=== PATIENT | female | born 1950 | race Asian ===

== ENCOUNTER 2017-01-30 20:42 | Inpatient (IN) | payer MEDICARE, OTHER ==
[~2017-01-30] VITALS: Ht 154.9 cm; Wt 57.2 kg
[~2017-01-30 20:42] MED LIST: CALC500T62 PO; CARV3 PO; INSNOV SQ; ISON300 PO; LEVO75TA10; LISI-662 PO; PHOSLOC PO; PRAV40 PO; SEVEC800 PO; VIT1TABL82 PO
[2017-01-30] MEDS ORDERED: DEXTROSE 50%-WATER 25 GM/50 ML SYRINGE IVP ONE ×3 (21:42→22:00)
[2017-01-30 21:57] LABS: BASOPHILS # (AUTO) 0.05 K/uL (0.00-0.20); BASOPHILS % (AUTO) 0.5 % (0.0-2.0); EOSINOPHILS # (AUTO) 0.16 K/uL (0.00-0.70); EOSINOPHILS % (AUTO) 1.87 % (1.0-6.0); HEMATOCRIT 38.5 % (36-46); HEMOGLOBIN 12.6 g/dL (12.0-16.0); LYMPHOCYTES # (AUTO) 1.4 K/uL (1.0-4.8); LYMPHOCYTES % (AUTO) 16.8 % (22.0-44.0); MEAN CORPUSCULAR HEMOGLOBIN 32.5 pg (26.0-34.0); MEAN CORPUSCULAR HGB CONC 32.8 G/dL (31.0-37.0); MEAN CORPUSCULAR VOLUME 99 fL (80-100); MONOCYTES # (AUTO) 0.7 K/uL (0.1-1.0); MONOCYTES % (AUTO) 8.6 % (2.0-9.0); NEUTROPHILS # (AUTO) 6.2 K/uL (1.8-7.7); NEUTROPHILS % (AUTO) 72.2 % (40.0-70.0); PLATELET COUNT (AUTO) 176 K/uL (150-450); RED BLOOD CELL COUNT(AUTO) 3.89 MIL/uL (4.00-5.20); RED CELL DISTRIBUTION WIDTH 15.4 % (11.5-14.5); WHITE BLOOD COUNT (AUTO) 8.6 K/uL (4.5-11.0)
[2017-01-30 22:12] LABS: CREATININE 10.7 mg/dL (0.60-1.30); POTASSIUM 4.4 mmol/L (3.5-5.1)
[2017-01-30 22:15] LABS: ALBUMIN 3.4 g/dL (3.4-5.0); BILIRUBIN,TOTAL 0.3 mg/dL (0.1-1.0); TOTAL PROTEIN, SERUM 8.1 g/dL (6.4-8.2)
[2017-01-30 22:27] LABS: GLUCOSE,POINT OF CARE 398 MG/DL (70-110)
[2017-01-30] MEDS ORDERED: DIGOXIN 250 MCG/ML 2 ML AMP IVP ONE (22:30)
[2017-01-30] MEDS ORDERED: OxyCODONE HCL/ACETAMINOPHEN 5-325 MG TABLET PO PRN (22:30)
[2017-01-30] MEDS ORDERED: ACETAMINOPHEN 325 MG TABLET PO PRN (22:30)
[2017-01-30] MEDS ORDERED: DILTIAZEM HCL 5 MG/ML 5 ML VIAL IVP ONE (22:30)
[2017-01-30 22:49] LABS: PROTHROMBIN TIME 10.6 SEC (9.4-11.6)
[2017-01-30 22:57] LABS: GLUCOSE,POINT OF CARE 369 MG/DL (70-110)
[2017-01-30 23:10] LABS: LACTIC ACID 2.3 mmol/L (0.4-2.0)
[2017-01-30 23:12] LABS: GLUCOSE,POINT OF CARE 313 MG/DL (70-110)
[2017-01-30 23:18] LABS: PROCALCITONIN (PCT) 0.24 ng/mL (<0.50)
[2017-01-30 23:20] LABS: BASOPHILS % (AUTO) 0.2 % (0.0-2.0); HEMATOCRIT 40.1 % (36-46); LYMPHOCYTES # (AUTO) 0.8 K/uL (1.0-4.8); LYMPHOCYTES % (AUTO) 10.8 % (22.0-44.0); MEAN CORPUSCULAR HEMOGLOBIN 31.8 pg (26.0-34.0); MEAN CORPUSCULAR HGB CONC 32.3 G/dL (31.0-37.0); MEAN CORPUSCULAR VOLUME 98 fL (80-100); MONOCYTES # (AUTO) 0.3 K/uL (0.1-1.0); MONOCYTES % (AUTO) 3.8 % (2.0-9.0); NEUTROPHILS # (AUTO) 6.6 K/uL (1.8-7.7); NEUTROPHILS % (AUTO) 84.2 % (40.0-70.0); PLATELET COUNT (AUTO) 192 K/uL (150-450); RED BLOOD CELL COUNT(AUTO) 4.08 MIL/uL (4.00-5.20); RED CELL DISTRIBUTION WIDTH 15.2 % (11.5-14.5); WHITE BLOOD COUNT (AUTO) 7.8 K/uL (4.5-11.0)
[2017-01-30 23:28] LABS: CREATININE 10.46 mg/dL (0.60-1.30); POTASSIUM 4.4 mmol/L (3.5-5.1)
[2017-01-30 23:34] LABS: ALBUMIN 3.4 g/dL (3.4-5.0); BILIRUBIN,TOTAL 0.3 mg/dL (0.1-1.0)
[2017-01-31 00:28] LABS: REFLEX LACTIC ACID? YES YES
[2017-01-31] MEDS: HEPARIN SODIUM,PORCINE 5,000 UNITS/ML VIAL SQ SCH ×3 (01:16→16:16)
[2017-01-31 03:22] LABS: GLUCOSE,POINT OF CARE 260 MG/DL (70-110)
[2017-01-31 06:40] LABS: ALBUMIN 3.1 g/dL (3.4-5.0); BILIRUBIN,TOTAL 0.3 mg/dL (0.1-1.0); CALCIUM, TOTAL 7.7 mg/dL (8.8-10.5); CREATININE 11.61 mg/dL (0.60-1.30); POTASSIUM 4.8 mmol/L (3.5-5.1); TOTAL PROTEIN, SERUM 7.2 g/dL (6.4-8.2)
[2017-01-31] MEDS: LEVOTHYROXINE SODIUM 75 MCG TABLET PO SCH (06:51)
[2017-01-31 06:52] LABS: BASOPHILS # (AUTO) 0.02 K/uL (0.00-0.20); BASOPHILS % (AUTO) 0.4 % (0.0-2.0); EOSINOPHILS # (AUTO) 0.09 K/uL (0.00-0.70); EOSINOPHILS % (AUTO) 1.45 % (1.0-6.0); HEMATOCRIT 33.2 % (36-46); HEMOGLOBIN 11.3 g/dL (12.0-16.0); LYMPHOCYTES # (AUTO) 1.4 K/uL (1.0-4.8); LYMPHOCYTES % (AUTO) 23.2 % (22.0-44.0); MEAN CORPUSCULAR HEMOGLOBIN 32.8 pg (26.0-34.0); MEAN CORPUSCULAR VOLUME 97 fL (80-100); MONOCYTES # (AUTO) 0.7 K/uL (0.1-1.0); MONOCYTES % (AUTO) 10.8 % (2.0-9.0); NEUTROPHILS # (AUTO) 3.9 K/uL (1.8-7.7); NEUTROPHILS % (AUTO) 64.2 % (40.0-70.0); PLATELET COUNT (AUTO) 199 K/uL (150-450); RED BLOOD CELL COUNT(AUTO) 3.44 MIL/uL (4.00-5.20); RED CELL DISTRIBUTION WIDTH 15.2 % (11.5-14.5)
[2017-01-31 07:37] LABS: GLUCOSE COMMENT 1 Juice/Food/D50 Given; GLUCOSE,POINT OF CARE < 10 MG/DL (70-110)
[2017-01-31] MEDS: DEXTROSE 50%-WATER 25 GM/50 ML SYRINGE IVP PRN ×3 (07:37→17:01)
[2017-01-31 07:46] LABS: GLUCOSE COMMENT 1 Juice/Food/D50 Given; GLUCOSE,POINT OF CARE 15 MG/DL (70-110)
[2017-01-31 08:32] LABS: GLUCOSE,POINT OF CARE 346 MG/DL (70-110)
[2017-01-31 08:32] LABS: GLUCOSE,POINT OF CARE 340 MG/DL (70-110)
[2017-01-31] MEDS: ISONIAZID 300 MG TABLET PO SCH (09:12)
[2017-01-31] MEDS: PANTOPRAZOLE SODIUM 40 MG DR TABLET PO SCH (09:12)
[2017-01-31 09:37] LABS: GLUCOSE COMMENT 1 Repeated; GLUCOSE,POINT OF CARE 436 MG/DL (70-110)
[2017-01-31 11:42] LABS: GLUCOSE,POINT OF CARE 416 MG/DL (70-110)
[2017-01-31 11:42] LABS: GLUCOSE,POINT OF CARE 366 MG/DL (70-110)
[2017-01-31 13:02] LABS: GLUCOSE,POINT OF CARE 374 MG/DL (70-110)
[2017-01-31] MEDS: VITAMIN B COMP/VIT C/FOLIC ACID CAPSULE PO SCH (13:14)
[2017-01-31] MEDS: INSULIN ASPART 100 UNITS/ML SQ PRN (13:15)
[2017-01-31 14:13] VITALS: BP 138/57
[2017-01-31 15:31] VITALS: BP 114/60
[2017-01-31 18:06] LABS: GLUCOSE COMMENT 1 Juice/Food/D50 Given; GLUCOSE COMMENT 3 Received Meds; GLUCOSE,POINT OF CARE 42 MG/DL (70-110)
[2017-01-31 18:12] LABS: GLUCOSE COMMENT 1 Doctor Notified; GLUCOSE,POINT OF CARE 320 MG/DL (70-110)
[2017-01-31 18:46] LABS: GLUCOSE,POINT OF CARE 356 MG/DL (70-110)
[2017-01-31 22:02] LABS: GLUCOSE,POINT OF CARE 262 MG/DL (70-110)
[2017-01-31 22:02] LABS: GLUCOSE,POINT OF CARE 304 MG/DL (70-110)
[2017-01-31 22:02] LABS: GLUCOSE COMMENT 1 Received Meds; GLUCOSE,POINT OF CARE 230 MG/DL (70-110)
[2017-01-31 22:04] VITALS: BP 128/47
[2017-01-31 23:37] VITALS: BP 123/56
[2017-02-01] MEDS: HEPARIN SODIUM,PORCINE 5,000 UNITS/ML VIAL SQ SCH ×4 (00:32→23:21)
[2017-02-01 04:44] VITALS: BP 133/54
[2017-02-01 05:46] LABS: GLUCOSE COMMENT 1 Repeated; GLUCOSE,POINT OF CARE 391 MG/DL (70-110)
[2017-02-01] MEDS: LEVOTHYROXINE SODIUM 75 MCG TABLET PO SCH (05:54)
[2017-02-01] MEDS: INSULIN ASPART 100 UNITS/ML SQ PRN ×4 (05:54→19:57)
[2017-02-01 06:12] LABS: GLUCOSE COMMENT 1 Received Meds; GLUCOSE,POINT OF CARE 439 MG/DL (70-110)
[2017-02-01 07:00] LABS: BASOPHILS % (AUTO) 0.4 % (0.0-2.0); EOSINOPHILS % (AUTO) 1.8 % (1.0-6.0); HEMATOCRIT 32.2 % (36-46); HEMOGLOBIN 10.5 g/dL (12.0-16.0); LYMPHOCYTES # (AUTO) 0.9 K/uL (1.0-4.8); LYMPHOCYTES % (AUTO) 12.7 % (22.0-44.0); MEAN CORPUSCULAR HGB CONC 32.6 G/dL (31.0-37.0); MEAN CORPUSCULAR VOLUME 98 fL (80-100); MONOCYTES # (AUTO) 0.4 K/uL (0.1-1.0); NEUTROPHILS # (AUTO) 5.7 K/uL (1.8-7.7); NEUTROPHILS % (AUTO) 79.1 % (40.0-70.0); PLATELET COUNT (AUTO) 169 K/uL (150-450); RED BLOOD CELL COUNT(AUTO) 3.28 MIL/uL (4.00-5.20); RED CELL DISTRIBUTION WIDTH 15.2 % (11.5-14.5); WHITE BLOOD COUNT (AUTO) 7.2 K/uL (4.5-11.0)
[2017-02-01 07:14] LABS: ALBUMIN 3.1 g/dL (3.4-5.0); BILIRUBIN,TOTAL 0.3 mg/dL (0.1-1.0); CALCIUM, TOTAL 8.1 mg/dL (8.8-10.5); CREATININE 6.9 mg/dL (0.60-1.30); POTASSIUM 4.9 mmol/L (3.5-5.1); TOTAL PROTEIN, SERUM 7.2 g/dL (6.4-8.2)
[2017-02-01 07:45] VITALS: BP 133/69
[2017-02-01] MEDS: PANTOPRAZOLE SODIUM 40 MG DR TABLET PO SCH (07:51)
[2017-02-01] MEDS: VITAMIN B COMP/VIT C/FOLIC ACID CAPSULE PO SCH (07:51)
[2017-02-01] MEDS: ISONIAZID 300 MG TABLET PO SCH (07:51)
[2017-02-01 08:07] LABS: GLUCOSE,POINT OF CARE 221 MG/DL (70-110)
[2017-02-01 11:32] VITALS: BP 128/51
[2017-02-01 12:01] LABS: GLUCOSE COMMENT 1 Doctor Notified; GLUCOSE,POINT OF CARE 471 MG/DL (70-110)
[2017-02-01 13:26] LABS: THYROID STIMULATING HORMONE 2.53 uIU/mL (0.36-3.74)
[2017-02-01 15:16] VITALS: BP 130/50
[2017-02-01] MEDS ORDERED: INSULIN ASPART 100 UNITS/ML SQ ONE (16:30)
[2017-02-01 17:16] LABS: GLUCOSE COMMENT 1 Doctor Notified; GLUCOSE,POINT OF CARE 443 MG/DL (70-110)
[2017-02-01 20:07] VITALS: BP 115/60
[2017-02-01 22:42] LABS: GLUCOSE COMMENT 1 Received Meds; GLUCOSE,POINT OF CARE 314 MG/DL (70-110)
[2017-02-02] VITALS (8 sets, daily range): BP systolic 118–152; BP diastolic 63–73
[2017-02-02] MEDS: INSULIN ASPART 100 UNITS/ML SQ PRN ×2 (05:54→11:49)
[2017-02-02] MEDS: LEVOTHYROXINE SODIUM 75 MCG TABLET PO SCH (05:55)
[2017-02-02] MEDS ORDERED: INSULIN ASPART 100 UNITS/ML SQ ONE (06:30)
[2017-02-02 07:05] LABS: BASOPHILS % (AUTO) 0.4 % (0.0-2.0); HEMATOCRIT 32.8 % (36-46); HEMOGLOBIN 10.7 g/dL (12.0-16.0); LYMPHOCYTES # (AUTO) 1.1 K/uL (1.0-4.8); LYMPHOCYTES % (AUTO) 13.6 % (22.0-44.0); MEAN CORPUSCULAR HEMOGLOBIN 32.4 pg (26.0-34.0); MEAN CORPUSCULAR HGB CONC 32.7 G/dL (31.0-37.0); MEAN CORPUSCULAR VOLUME 99 fL (80-100); MONOCYTES # (AUTO) 0.4 K/uL (0.1-1.0); NEUTROPHILS # (AUTO) 6.6 K/uL (1.8-7.7); PLATELET COUNT (AUTO) 176 K/uL (150-450); RED BLOOD CELL COUNT(AUTO) 3.31 MIL/uL (4.00-5.20); RED CELL DISTRIBUTION WIDTH 15.1 % (11.5-14.5); WHITE BLOOD COUNT (AUTO) 8.3 K/uL (4.5-11.0)
[2017-02-02 08:02] LABS: GLUCOSE,POINT OF CARE > 600 MG/DL (70-110)
[2017-02-02] MEDS: VITAMIN B COMP/VIT C/FOLIC ACID CAPSULE PO SCH (09:09)
[2017-02-02] MEDS: ISONIAZID 300 MG TABLET PO SCH (09:09)
[2017-02-02] MEDS: HEPARIN SODIUM,PORCINE 5,000 UNITS/ML VIAL SQ SCH ×3 (09:09→23:21)
[2017-02-02] MEDS: PANTOPRAZOLE SODIUM 40 MG DR TABLET PO SCH (09:09)
[2017-02-02] MEDS: INSULIN DETEMIR 100 UNITS/ML SQ SCH ×2 (09:15→21:00)
[2017-02-02 09:41] LABS: GLUCOSE COMMENT 1 Doctor Notified; GLUCOSE COMMENT 3 Received Meds; GLUCOSE,POINT OF CARE > 600 MG/DL (70-110)
[2017-02-02] MEDS ORDERED: INSULIN DETEMIR 100 UNITS/ML SQ ONE ×2 (09:45→11:15)
[2017-02-02 09:47] LABS: GLUCOSE COMMENT 1 Doctor Notified; GLUCOSE,POINT OF CARE > 600 MG/DL (70-110)
[2017-02-02 10:04] LABS: CALCIUM, TOTAL 8.2 mg/dL (8.8-10.5); CREATININE 10.24 mg/dL (0.60-1.30); POTASSIUM 5.3 mmol/L (3.5-5.1)
[2017-02-02 10:07] LABS: ALBUMIN 2.9 g/dL (3.4-5.0); BILIRUBIN,TOTAL 0.3 mg/dL (0.1-1.0); TOTAL PROTEIN, SERUM 6.6 g/dL (6.4-8.2)
[2017-02-02 12:46] LABS: GLUCOSE COMMENT 1 Doctor Notified; GLUCOSE,POINT OF CARE > 600 MG/DL (70-110)
[2017-02-02 17:13] LABS: GLUCOSE COMMENT 1 Received Meds; GLUCOSE,POINT OF CARE 196 MG/DL (70-110)
[2017-02-02 21:12] LABS: GLUCOSE,POINT OF CARE 126 MG/DL (70-110)
[2017-02-02 23:31] LABS: GLUCOSE,POINT OF CARE 62 MG/DL (70-110)
[2017-02-03 00:02] LABS: GLUCOSE,POINT OF CARE 138 MG/DL (70-110)
[2017-02-03 04:48] VITALS: BP 141/74
[2017-02-03] MEDS: LEVOTHYROXINE SODIUM 75 MCG TABLET PO SCH (04:56)
[2017-02-03 05:21] LABS: GLUCOSE,POINT OF CARE 343 MG/DL (70-110)
[2017-02-03] MEDS: HEPARIN SODIUM,PORCINE 5,000 UNITS/ML VIAL SQ SCH (07:49)
[2017-02-03] MEDS: VITAMIN B COMP/VIT C/FOLIC ACID CAPSULE PO SCH (07:49)
[2017-02-03] MEDS: PANTOPRAZOLE SODIUM 40 MG DR TABLET PO SCH (07:49)
[2017-02-03] MEDS: ISONIAZID 300 MG TABLET PO SCH (07:50)
[2017-02-03] MEDS: INSULIN DETEMIR 100 UNITS/ML SQ SCH (07:50)
[2017-02-03 07:59] VITALS: BP 147/68
[2017-02-03 10:11] LABS: BASOPHILS % (AUTO) 0.5 % (0.0-2.0); EOSINOPHILS % (AUTO) 2.3 % (1.0-6.0); HEMATOCRIT 30.5 % (36-46); HEMOGLOBIN 10.2 g/dL (12.0-16.0); LYMPHOCYTES # (AUTO) 1.2 K/uL (1.0-4.8); LYMPHOCYTES % (AUTO) 17.8 % (22.0-44.0); MEAN CORPUSCULAR HEMOGLOBIN 32.2 pg (26.0-34.0); MEAN CORPUSCULAR HGB CONC 33.3 G/dL (31.0-37.0); MEAN CORPUSCULAR VOLUME 97 fL (80-100); MONOCYTES # (AUTO) 0.5 K/uL (0.1-1.0); MONOCYTES % (AUTO) 7.1 % (2.0-9.0); NEUTROPHILS # (AUTO) 5.1 K/uL (1.8-7.7); NEUTROPHILS % (AUTO) 72.3 % (40.0-70.0); PLATELET COUNT (AUTO) 180 K/uL (150-450); RED BLOOD CELL COUNT(AUTO) 3.15 MIL/uL (4.00-5.20); RED CELL DISTRIBUTION WIDTH 14.9 % (11.5-14.5)
[2017-02-03 10:12] LABS: ALBUMIN 3.1 g/dL (3.4-5.0); BILIRUBIN,TOTAL 0.3 mg/dL (0.1-1.0); CALCIUM, TOTAL 9.3 mg/dL (8.8-10.5); CREATININE 6.03 mg/dL (0.60-1.30); POTASSIUM 4.2 mmol/L (3.5-5.1); TOTAL PROTEIN, SERUM 7.3 g/dL (6.4-8.2)
[2017-02-03 12:00] LABS: GLUCOSE COMMENT 1 Received Meds; GLUCOSE,POINT OF CARE 147 MG/DL (70-110)
[2017-02-03] MEDS ORDERED: INSU100V12 SQ (14:30)
[2017-02-03 18:07] LABS: HEPATITIS Bs ANTIGEN SCREEN P Confirm. indicated (Negative)
== END 2017-02-03 14:49 | disposition home health service (06) | DRG 637 ==
LOC: EMS 20:44 → 6N 01-31 13:09
PROVIDERS: ADMIT Hospitalist; ATTEND Hospitalist
PROC: 5A1D60Z (ICD-10-PCS; principal; 2017-01-31)
DX: E11.649 Type 2 diabetes mellitus with hypoglycemia without coma (principal); G93.41 Metabolic encephalopathy; B18.1 Chronic viral hepatitis B without delta-agent; I12.0 Hypertensive chronic kidney disease with stage 5 chronic kidney disease or end stage renal disease; N18.6 End stage renal disease; E03.9 Hypothyroidism, unspecified; R76.11 Nonspecific reaction to tuberculin skin test without active tuberculosis; E11.22 Type 2 diabetes mellitus with diabetic chronic kidney disease; I48.91 Unspecified atrial fibrillation; E11.65 Type 2 diabetes mellitus with hyperglycemia; E87.5 Hyperkalemia; Z79.899 Other long term (current) drug therapy; Z79.4 Long term (current) use of insulin; Z99.2 Dependence on renal dialysis
CPT/HCPCS: 51701; 82962; 83036; 83605; 84145; 84443; 86709; 87040; 87340; 93005; 96372; 96374; 96376; 99285; J1160; J1644; J1815; J3490

== ENCOUNTER 2018-05-27 19:34 | Emergency (ER) | payer MEDICARE, OTHER ==
[~2018-05-27] VITALS: Ht 157.5 cm; Wt 48.4 kg
[~2018-05-27 19:34] MED LIST changes: -INSNOV SQ; +INSU100V12 SQ; -LISI-662 PO; -PRAV40 PO; +PRAV40TA4 PO
[2018-05-27 20:13] LABS: EOSINOPHILS % (AUTO) 2.6 % (1.0-6.0); HEMATOCRIT 37.2 % (36-46); HEMOGLOBIN 12.4 g/dL (12.0-16.0); LYMPHOCYTES # (AUTO) 0.8 K/uL (1.0-4.8); LYMPHOCYTES % (AUTO) 17.7 % (22.0-44.0); MEAN CORPUSCULAR HEMOGLOBIN 32.8 pg (26.0-34.0); MEAN CORPUSCULAR HGB CONC 33.5 G/dL (31.0-37.0); MEAN CORPUSCULAR VOLUME 98 fL (80-100); MONOCYTES # (AUTO) 0.6 K/uL (0.1-1.0); MONOCYTES % (AUTO) 12.4 % (2.0-9.0); NEUTROPHILS % (AUTO) 66.3 % (40.0-70.0); PLATELET COUNT (AUTO) 167 K/uL (150-450); RED BLOOD CELL COUNT(AUTO) 3.79 MIL/uL (4.00-5.20); RED CELL DISTRIBUTION WIDTH 18.3 % (11.5-14.5)
[2018-05-27 20:44] LABS: CALCIUM, TOTAL 8.2 mg/dL (8.8-10.5); CREATININE 5.53 mg/dL (0.60-1.30); POTASSIUM 3.6 mmol/L (3.5-5.1)
[2018-05-27] MEDS ORDERED: PIPERACILLIN/TAZO 3.375 GM/D5W 50 ML IV ONE (22:30)
[2018-05-27] MEDS ORDERED: SODIUM CHLORIDE 0.9% 1,000 ML IV ONE (22:30)
[2018-05-27] MEDS ORDERED: SODIUM CHLORIDE 0.9% 500 ML IV ONE (22:30)
[2018-05-28 02:53] VITALS: BP 169/69
[2018-06-01 16:39] LABS: GLUCOSE,POINT OF CARE 37 MG/DL (70-110)
[2018-06-01 16:39] LABS: GLUCOSE,POINT OF CARE 41 MG/DL (70-110)
[2018-06-01 16:39] LABS: GLUCOSE,POINT OF CARE 137 MG/DL (70-110)
[2018-06-01 16:39] LABS: GLUCOSE,POINT OF CARE 124 MG/DL (70-110)
[2018-06-01 16:39] LABS: GLUCOSE,POINT OF CARE 118 MG/DL (70-110)
[2018-06-01 16:39] LABS: GLUCOSE,POINT OF CARE 164 MG/DL (70-110)
[2018-06-01 16:39] LABS: GLUCOSE,POINT OF CARE 103 MG/DL (70-110)
== END 2018-05-28 02:57 | disposition home or self-care (01) ==
LOC: EMS 19:36
DX: T68.XXXA Hypothermia, initial encounter (principal); E11.649 Type 2 diabetes mellitus with hypoglycemia without coma; I12.0 Hypertensive chronic kidney disease with stage 5 chronic kidney disease or end stage renal disease; E11.22 Type 2 diabetes mellitus with diabetic chronic kidney disease; N18.6 End stage renal disease; Z79.4 Long term (current) use of insulin
CPT/HCPCS: 36415; 71045; 80048; 82962; 84484; 85025; 87040; 93005; 96365; 99285; J2543; J7030

== ENCOUNTER 2018-11-04 07:17 | Inpatient (IN) | payer MEDICARE, OTHER ==
[~2018-11-04] VITALS: Ht 160 cm; Wt 51.2 kg
[~2018-11-04 07:17] MED LIST changes: +ATOR20TA86 PO; -CALC500T62 PO; +DSS100 PO; +FERR-89 PO; +FOLI1CAP2 PO; +HYDR-2924 PO; +INSNOV SQ; -ISON300 PO; +LEVE250T55 PO; +LOSA25TA41 PO; +NIFE60TA71 PO; +PANT40TA25 PO; -PHOSLOC PO; -PRAV40TA4 PO; -VIT1TABL82 PO
[2018-11-04 07:33] LABS: GLUCOSE,POINT OF CARE 100 MG/DL (70-110)
[2018-11-04 08:06] LABS: BASOPHILS % (AUTO) 0.5 % (0.0-2.0); EOSINOPHILS % (AUTO) 0.2 % (1.0-6.0); HEMATOCRIT 34.9 % (36-46); HEMOGLOBIN 11.7 g/dL (12.0-16.0); LYMPHOCYTES # (AUTO) 0.6 K/uL (1.0-4.8); MEAN CORPUSCULAR HEMOGLOBIN 33.6 pg (26.0-34.0); MEAN CORPUSCULAR HGB CONC 33.4 G/dL (31.0-37.0); MEAN CORPUSCULAR VOLUME 101 fL (80-100); MONOCYTES # (AUTO) 0.2 K/uL (0.1-1.0); MONOCYTES % (AUTO) 3.9 % (2.0-9.0); NEUTROPHILS # (AUTO) 5.4 K/uL (1.8-7.7); PLATELET COUNT (AUTO) 266 K/uL (150-450); RED BLOOD CELL COUNT(AUTO) 3.47 MIL/uL (4.00-5.20); RED CELL DISTRIBUTION WIDTH 18.3 % (11.5-14.5)
[2018-11-04 08:11] LABS: NEUTROPHILS % (AUTO) 86.4 % (40.0-70.0)
[2018-11-04 08:19] LABS: CALCIUM, TOTAL 9.7 mg/dL (8.8-10.5); CREATININE 7.32 mg/dL (0.60-1.30); POTASSIUM 5.6 mmol/L (3.5-5.1)
[2018-11-04] MEDS ORDERED: ACETAMINOPHEN 325 MG TABLET PO PRN ×2 (08:45→16:45)
[2018-11-04] MEDS ORDERED: ONDANSETRON HCL 4 MG/2 ML VIAL IVP PRN ×2 (08:45→16:45)
[2018-11-04 09:05] LABS: GLUCOSE,POINT OF CARE 288 MG/DL (70-110)
[2018-11-04 11:03] LABS: GLUCOSE,POINT OF CARE 340 MG/DL (70-110)
[2018-11-04 14:42] VITALS: BP 153/69
[2018-11-04] MEDS ORDERED: SODIUM CHLORIDE 0.9% 1,000 ML IV ONE (16:11)
[2018-11-04 16:26] VITALS: BP 156/72
[2018-11-04] MEDS ORDERED: LANSOPRAZOLE 30 MG SOLUBLE TABLET PO SCH (16:45)
[2018-11-04] MEDS ORDERED: VITAMIN B COMP/VIT C/FOLIC ACID CAPSULE PO SCH (16:45)
[2018-11-04] MEDS ORDERED: LEVOTHYROXINE SODIUM 75 MCG TABLET PO SCH (16:45)
[2018-11-04] MEDS ORDERED: INSULIN LISPRO 100 UNITS/ML SQ PRN ×2 (16:45→17:45)
[2018-11-04] MEDS ORDERED: DEXTROSE 50%-WATER 25 GM/50 ML SYRINGE IVP PRN ×2 (16:45→17:45)
[2018-11-04] MEDS ORDERED: ATORVASTATIN CALCIUM 20 MG TABLET PO SCH (16:45)
[2018-11-04] MEDS ORDERED: HEPARIN SODIUM,PORCINE 5,000 UNITS/ML VIAL SQ SCH (16:45)
[2018-11-04] MEDS ORDERED: NIFEdipine 60 MG ER TABLET PO SCH (16:45)
[2018-11-04] MEDS ORDERED: SEVELAMER CARBONATE 800 MG TABLET PO SCH (18:00)
[2018-11-04] MEDS ORDERED: FERROUS SULFATE 325 MG EC TABLET PO SCH (18:00)
[2018-11-04 18:30] LABS: ALBUMIN 3.1 g/dL (3.4-5.0); BILIRUBIN,TOTAL 0.4 mg/dL (0.1-1.0); CALCIUM, TOTAL 8.6 mg/dL (8.8-10.5); CREATININE 5.31 mg/dL (0.60-1.30); TOTAL PROTEIN, SERUM 7.1 g/dL (6.4-8.2)
[2018-11-04 18:37] LABS: POTASSIUM 6.1 mmol/L (3.5-5.1)
[2018-11-04] MEDS ORDERED: MANNITOL 25%-12.5 GM/50 ML VIAL IVP PRN (20:15)
[2018-11-04] MEDS ORDERED: HEPARIN SODIUM,PORCINE 1,000 UNITS/ML VIAL IVP ONE ×2 (20:15)
[2018-11-04 20:16] VITALS: BP 144/68
[2018-11-04] MEDS ORDERED: SODIUM POLYSTYRENE SULFONATE 15 GM/60 ML SUSPENSION BOTTLE PO ONE (20:30)
[2018-11-04] MEDS ORDERED: CARVEDILOL 3.125 MG TABLET PO SCH (21:00)
[2018-11-04] MEDS ORDERED: INSULIN GLARGINE,HUM.REC.ANLOG 100 UNITS/ML SQ SCH (21:00)
[2018-11-04] MEDS ORDERED: LevETIRAcetam 500 MG TABLET PO SCH (21:00)
[2018-11-04] MEDS ORDERED: DOCUSATE SODIUM 100 MG CAPSULE PO SCH (21:00)
[2018-11-04] MEDS ORDERED: LevETIRAcetam 250 MG TABLET PO SCH (21:00)
[2018-11-04] MEDS ORDERED: LOSARTAN POTASSIUM 25 MG TABLET PO SCH (21:00)
[2018-11-04] MEDS ORDERED: HydrALAZINE HCL 50 MG TABLET PO SCH (21:00)
[2018-11-04] MEDS ORDERED: HEPARIN SODIUM,PORCINE 10,000 UNITS/ML VIAL ONE (21:59)
[2018-11-05] MEDS ORDERED: LEVOTHYROXINE SODIUM 75 MCG TABLET PO SCH (06:30)
[2018-11-05 12:59] LABS: GLUCOMETER DEV NAME(LOC) 5N.2; GLUCOSE,POINT OF CARE 490 MG/DL (70-110)
== END 2018-11-04 22:00 | disposition left against medical advice (07) | DRG 638 ==
LOC: EMS 07:19 → 5S 13:41
PROVIDERS: ADMIT Internal Medicine; ATTEND Internal Medicine
PROC: 5A1D70Z Performance of Urinary Filtration, Intermittent, Less than 6 Hours Per Day (ICD-10-PCS; principal; 2018-11-04)
DX: E11.649 Type 2 diabetes mellitus with hypoglycemia without coma (principal); I12.0 Hypertensive chronic kidney disease with stage 5 chronic kidney disease or end stage renal disease; D64.9 Anemia, unspecified; E03.9 Hypothyroidism, unspecified; E11.21 Type 2 diabetes mellitus with diabetic nephropathy; T38.3X5A Adverse effect of insulin and oral hypoglycemic [antidiabetic] drugs, initial encounter; E11.22 Type 2 diabetes mellitus with diabetic chronic kidney disease; E87.5 Hyperkalemia; Z53.21 Procedure and treatment not carried out due to patient leaving prior to being seen by health care provider; N18.6 End stage renal disease; Z79.4 Long term (current) use of insulin; Z83.3 Family history of diabetes mellitus; Z99.2 Dependence on renal dialysis; Z79.899 Other long term (current) drug therapy; Z86.73 Personal history of transient ischemic attack (TIA), and cerebral infarction without residual deficits; Y92.89 Other specified places as the place of occurrence of the external cause
CPT/HCPCS: 82948; 86709; 87081; 87340; 93005; G0378; J1644; J1815; J7030

== ENCOUNTER 2018-11-18 09:12 | Inpatient (IN) | payer MEDICARE, OTHER ==
[~2018-11-18] VITALS: Ht 157.5 cm; Wt 47.7 kg
[2018-11-18 09:36] LABS: BASOPHILS % (AUTO) 0.4 % (0.0-2.0); EOSINOPHILS % (AUTO) 0.3 % (1.0-6.0); HEMATOCRIT 35.7 % (36-46); HEMOGLOBIN 11.9 g/dL (12.0-16.0); LYMPHOCYTES # (AUTO) 1.9 K/uL (1.0-4.8); LYMPHOCYTES % (AUTO) 14.5 % (22.0-44.0); MEAN CORPUSCULAR HEMOGLOBIN 33.5 pg (26.0-34.0); MEAN CORPUSCULAR HGB CONC 33.3 G/dL (31.0-37.0); MEAN CORPUSCULAR VOLUME 100 fL (80-100); MONOCYTES # (AUTO) 0.7 K/uL (0.1-1.0); MONOCYTES % (AUTO) 5.1 % (2.0-9.0); NEUTROPHILS # (AUTO) 10.5 K/uL (1.8-7.7); NEUTROPHILS % (AUTO) 79.7 % (40.0-70.0); PLATELET COUNT (AUTO) 268 K/uL (150-450); RED BLOOD CELL COUNT(AUTO) 3.56 MIL/uL (4.00-5.20); RED CELL DISTRIBUTION WIDTH 16.8 % (11.5-14.5)
[2018-11-18 09:51] LABS: PROTHROMBIN TIME 10.2 SEC (9.4-11.6)
[2018-11-18 09:58] LABS: ALBUMIN 3.2 g/dL (3.4-5.0); BILIRUBIN,TOTAL 0.5 mg/dL (0.1-1.0); CALCIUM, TOTAL 10.2 mg/dL (8.8-10.5); CREATININE 8.82 mg/dL (0.60-1.30)
[2018-11-18 10:03] LABS: POTASSIUM 6.2 mmol/L (3.5-5.1)
[2018-11-18] MEDS ORDERED: INSULIN REGULAR, HUMAN 100 UNITS/ML IVP ONE (10:15)
[2018-11-18] MEDS ORDERED: LORazepam 2 MG/ML VIAL IVP ONE (10:15)
[2018-11-18] MEDS ORDERED: HydrALAZINE HCL 20 MG/ML VIAL IVP ONE ×2 (11:00→13:45)
[2018-11-18] MEDS ORDERED: ACETAMINOPHEN 325 MG TABLET PO PRN (11:00)
[2018-11-18] MEDS ORDERED: 0.9% SODIUM CHLORIDE 10 ML SYRINGE IVP PRN (11:00)
[2018-11-18] MEDS ORDERED: ONDANSETRON HCL 4 MG/2 ML VIAL IVP PRN ×2 (11:00→16:30)
[2018-11-18] MEDS ORDERED: CefTRIAXone 1 GM/DEXTROSE 50 ML IV ONE (11:00)
[2018-11-18] MEDS ORDERED: VANCOMYCIN HCL 1 GM/D5% WATER 200 ML IV ONE (11:00)
[2018-11-18 11:44] LABS: GLUCOSE,POINT OF CARE 443 MG/DL (70-110)
[2018-11-18 12:09] LABS: LACTIC ACID 3.1 mmol/L (0.4-2.0)
[2018-11-18] MEDS ORDERED: INSULIN LISPRO 100 UNITS/ML SQ PRN (15:45)
[2018-11-18] MEDS ORDERED: DEXTROSE 50%-WATER 25 GM/50 ML SYRINGE IVP PRN ×2 (15:45→16:30)
[2018-11-18] MEDS ORDERED: INSULIN LISPRO 100 UNITS/ML SQ ONE (15:45)
[2018-11-18] MEDS ORDERED: HYDROCODONE/ACETAMINOPHEN 5-325 MG TABLET PO PRN (16:27)
[2018-11-18] MEDS ORDERED: BISACODYL 10 MG RECTAL RECTAL SUPPOSITORY PR PRN (16:27)
[2018-11-18] MEDS: LANSOPRAZOLE 30 MG SOLUBLE TABLET PO SCH (16:30)
[2018-11-18] MEDS: ATORVASTATIN CALCIUM 20 MG TABLET PO SCH (16:30)
[2018-11-18] MEDS: HEPARIN SODIUM,PORCINE 5,000 UNITS/ML VIAL SQ SCH (16:30)
[2018-11-18] MEDS: NIFEdipine 60 MG ER TABLET PO SCH (16:30)
[2018-11-18] MEDS ORDERED: PANTOPRAZOLE SODIUM 40 MG DR TABLET PO SCH (16:30)
[2018-11-18] MEDS: VITAMIN B COMP/VIT C/FOLIC ACID CAPSULE PO SCH (16:30)
[2018-11-18] MEDS: INSULIN GLARGINE,HUM.REC.ANLOG 100 UNITS/ML SQ SCH (16:30)
[2018-11-18] MEDS ORDERED: LEVOTHYROXINE SODIUM 75 MCG TABLET PO SCH (16:30)
[2018-11-18] MEDS ORDERED: INSULIN LISPRO 100 UNITS/ML SQ SCH (17:30)
[2018-11-18 17:50] LABS: GLUCOMETER DEV NAME(LOC) 5S.2; GLUCOSE,POINT OF CARE 232 MG/DL (70-110)
[2018-11-18] MEDS: FERROUS SULFATE 325 MG EC TABLET PO SCH ×3 (18:00→21:00)
[2018-11-18] MEDS: SEVELAMER CARBONATE 800 MG TABLET PO SCH (18:00)
[2018-11-18 18:01] VITALS: BP 127/57
[2018-11-18 19:53] VITALS: BP 136/66
[2018-11-18] MEDS ORDERED: HEPARIN SODIUM,PORCINE 1,000 UNITS/ML VIAL IVP ONE (20:09)
[2018-11-18] MEDS: LevETIRAcetam 500 MG TABLET PO SCH (20:36)
[2018-11-18] MEDS: DOCUSATE SODIUM 100 MG CAPSULE PO SCH ×2 (20:36→21:00)
[2018-11-18] MEDS: CARVEDILOL 3.125 MG TABLET PO SCH (20:37)
[2018-11-18] MEDS: LOSARTAN POTASSIUM 25 MG TABLET PO SCH (20:37)
[2018-11-18] MEDS: INSULIN LISPRO 100 UNITS/ML SQ PRN (20:38)
[2018-11-18] MEDS: ALBUTEROL SULFATE 2.5 MG/0.5 ML NEB SOLUTION NEB SCH (20:58)
[2018-11-18] MEDS: IPRATROPIUM BROMIDE 0.5 MG/2.5 ML NEB SOLUTION NEB SCH (20:58)
[2018-11-18] MEDS: HydrALAZINE HCL 50 MG TABLET PO SCH (21:00)
[2018-11-19] VITALS (7 sets, daily range): BP systolic 138–181; BP diastolic 59–81
[2018-11-19] MEDS: HydrALAZINE HCL 50 MG TABLET PO SCH ×4 (00:51→20:01)
[2018-11-19] MEDS: HEPARIN SODIUM,PORCINE 5,000 UNITS/ML VIAL SQ SCH ×4 (00:51→23:48)
[2018-11-19] MEDS: ALBUTEROL SULFATE 2.5 MG/0.5 ML NEB SOLUTION NEB SCH ×4 (02:43→20:22)
[2018-11-19] MEDS: IPRATROPIUM BROMIDE 0.5 MG/2.5 ML NEB SOLUTION NEB SCH ×4 (02:43→20:22)
[2018-11-19] MEDS: LEVOTHYROXINE SODIUM 75 MCG TABLET PO SCH (06:01)
[2018-11-19] MEDS: INSULIN LISPRO 100 UNITS/ML SQ PRN ×2 (06:03→12:29)
[2018-11-19 06:05] LABS: GLUCOMETER DEV NAME(LOC) 5S.1; GLUCOSE,POINT OF CARE > 600 MG/DL (70-110)
[2018-11-19 08:55] LABS: GLUCOMETER DEV NAME(LOC) 5S.2; GLUCOSE,POINT OF CARE 308 MG/DL (70-110)
[2018-11-19 08:55] LABS: GLUCOMETER DEV NAME(LOC) 5S.2; GLUCOSE,POINT OF CARE 172 MG/DL (70-110)
[2018-11-19] MEDS: ATORVASTATIN CALCIUM 20 MG TABLET PO SCH (09:31)
[2018-11-19] MEDS: SEVELAMER CARBONATE 800 MG TABLET PO SCH ×3 (09:31→18:28)
[2018-11-19] MEDS: DOCUSATE SODIUM 100 MG CAPSULE PO SCH ×2 (09:32→20:01)
[2018-11-19] MEDS: VITAMIN B COMP/VIT C/FOLIC ACID CAPSULE PO SCH (09:32)
[2018-11-19] MEDS: LANSOPRAZOLE 30 MG SOLUBLE TABLET PO SCH (09:32)
[2018-11-19] MEDS: LevETIRAcetam 500 MG TABLET PO SCH ×2 (09:32→20:01)
[2018-11-19] MEDS: FERROUS SULFATE 325 MG EC TABLET PO SCH ×4 (09:33→20:01)
[2018-11-19] MEDS: CARVEDILOL 3.125 MG TABLET PO SCH ×2 (09:34→20:01)
[2018-11-19] MEDS: INSULIN GLARGINE,HUM.REC.ANLOG 100 UNITS/ML SQ SCH (09:36)
[2018-11-19 09:44] LABS: BASOPHILS % (AUTO) 0.6 % (0.0-2.0); EOSINOPHILS % (AUTO) 0.2 % (1.0-6.0); HEMOGLOBIN 10.2 g/dL (12.0-16.0); LYMPHOCYTES # (AUTO) 1.1 K/uL (1.0-4.8); LYMPHOCYTES % (AUTO) 13.7 % (22.0-44.0); MEAN CORPUSCULAR HEMOGLOBIN 33.6 pg (26.0-34.0); MEAN CORPUSCULAR HGB CONC 33.9 G/dL (31.0-37.0); MEAN CORPUSCULAR VOLUME 99 fL (80-100); MONOCYTES # (AUTO) 0.8 K/uL (0.1-1.0); MONOCYTES % (AUTO) 9.7 % (2.0-9.0); NEUTROPHILS # (AUTO) 6.1 K/uL (1.8-7.7); NEUTROPHILS % (AUTO) 75.8 % (40.0-70.0); PLATELET COUNT (AUTO) 225 K/uL (150-450); RED BLOOD CELL COUNT(AUTO) 3.02 MIL/uL (4.00-5.20); RED CELL DISTRIBUTION WIDTH 17.2 % (11.5-14.5)
[2018-11-19 09:59] LABS: ALBUMIN 2.7 g/dL (3.4-5.0); BILIRUBIN,TOTAL 0.4 mg/dL (0.1-1.0); CALCIUM, TOTAL 9.2 mg/dL (8.8-10.5); CREATININE 5.79 mg/dL (0.60-1.30); TOTAL PROTEIN, SERUM 6.9 g/dL (6.4-8.2)
[2018-11-19 10:44] LABS: GLUCOMETER DEV NAME(LOC) 5S.1; GLUCOSE,POINT OF CARE 197 MG/DL (70-110)
[2018-11-19] MEDS: NIFEdipine 60 MG ER TABLET PO SCH (12:11)
[2018-11-19] MEDS: LOSARTAN POTASSIUM 25 MG TABLET PO SCH ×2 (12:11→20:01)
[2018-11-19] MEDS: GABAPENTIN 100 MG CAPSULE PO PRN ×2 (18:28→23:48)
[2018-11-19 21:30] LABS: GLUCOMETER DEV NAME(LOC) 5N.2; GLUCOSE,POINT OF CARE 113 MG/DL (70-110)
[2018-11-19 21:49] LABS: GLUCOMETER DEV NAME(LOC) 5S.1; GLUCOSE,POINT OF CARE 211 MG/DL (70-110)
[2018-11-19 21:49] LABS: GLUCOMETER DEV NAME(LOC) 5S.1; GLUCOSE,POINT OF CARE 246 MG/DL (70-110)
[2018-11-20] MEDS: ALBUTEROL SULFATE 2.5 MG/0.5 ML NEB SOLUTION NEB SCH ×4 (02:00→20:00)
[2018-11-20] MEDS: IPRATROPIUM BROMIDE 0.5 MG/2.5 ML NEB SOLUTION NEB SCH ×4 (02:00→20:00)
[2018-11-20 04:57] VITALS: BP 155/66
[2018-11-20] MEDS: LEVOTHYROXINE SODIUM 75 MCG TABLET PO SCH (06:35)
[2018-11-20] MEDS: GABAPENTIN 100 MG CAPSULE PO PRN ×3 (06:35→23:32)
[2018-11-20 08:31] VITALS: BP 136/63
[2018-11-20] MEDS: SEVELAMER CARBONATE 800 MG TABLET PO SCH ×3 (08:51→18:06)
[2018-11-20] MEDS: FERROUS SULFATE 325 MG EC TABLET PO SCH ×4 (08:51→20:35)
[2018-11-20] MEDS: DOCUSATE SODIUM 100 MG CAPSULE PO SCH ×2 (08:51→20:35)
[2018-11-20] MEDS: VITAMIN B COMP/VIT C/FOLIC ACID CAPSULE PO SCH (08:51)
[2018-11-20] MEDS: HEPARIN SODIUM,PORCINE 5,000 UNITS/ML VIAL SQ SCH ×3 (08:51→23:32)
[2018-11-20] MEDS: LANSOPRAZOLE 30 MG SOLUBLE TABLET PO SCH (08:54)
[2018-11-20] MEDS: ATORVASTATIN CALCIUM 20 MG TABLET PO SCH (08:54)
[2018-11-20] MEDS: INSULIN GLARGINE,HUM.REC.ANLOG 100 UNITS/ML SQ SCH (08:55)
[2018-11-20] MEDS: HydrALAZINE HCL 50 MG TABLET PO SCH ×3 (09:00→20:35)
[2018-11-20 11:43] VITALS: BP 158/75
[2018-11-20] MEDS ORDERED: SODIUM CHLORIDE 0.9% 2,000 ML IV ONE (11:51)
[2018-11-20] MEDS ORDERED: HEPARIN SODIUM,PORCINE 1,000 UNITS/ML VIAL IVP ONE (12:00)
[2018-11-20] MEDS: CARVEDILOL 3.125 MG TABLET PO SCH ×2 (12:30→20:35)
[2018-11-20] MEDS: NIFEdipine 60 MG ER TABLET PO SCH (12:30)
[2018-11-20] MEDS: LevETIRAcetam 500 MG TABLET PO SCH ×2 (12:30→20:35)
[2018-11-20] MEDS: LOSARTAN POTASSIUM 25 MG TABLET PO SCH ×2 (12:31→20:35)
[2018-11-20] MEDS: INSULIN LISPRO 100 UNITS/ML SQ PRN ×2 (12:32→20:37)
[2018-11-20 15:38] VITALS: BP 150/72
[2018-11-20 17:48] LABS: CALCIUM, TOTAL 8.9 mg/dL (8.8-10.5); CREATININE 3.36 mg/dL (0.60-1.30); POTASSIUM 4.1 mmol/L (3.5-5.1)
[2018-11-20 18:20] LABS: GLUCOMETER DEV NAME(LOC) 5S.1; GLUCOSE,POINT OF CARE 126 MG/DL (70-110)
[2018-11-20 18:20] LABS: GLUCOMETER DEV NAME(LOC) 5S.1; GLUCOSE,POINT OF CARE 101 MG/DL (70-110)
[2018-11-20 18:50] LABS: GLUCOMETER DEV NAME(LOC) 5S.2; GLUCOSE,POINT OF CARE 69 MG/DL (70-110)
[2018-11-20 19:19] VITALS: BP 167/77
[2018-11-21 00:15] LABS: GLUCOMETER DEV NAME(LOC) 5S.1; GLUCOSE,POINT OF CARE 198 MG/DL (70-110)
[2018-11-21 00:29] VITALS: BP 161/77
[2018-11-21] MEDS: ALBUTEROL SULFATE 2.5 MG/0.5 ML NEB SOLUTION NEB SCH ×3 (02:00→14:28)
[2018-11-21] MEDS: IPRATROPIUM BROMIDE 0.5 MG/2.5 ML NEB SOLUTION NEB SCH ×3 (02:00→14:29)
[2018-11-21 04:31] VITALS: BP 153/76
[2018-11-21] MEDS: LEVOTHYROXINE SODIUM 75 MCG TABLET PO SCH (06:17)
[2018-11-21] MEDS: INSULIN LISPRO 100 UNITS/ML SQ PRN ×2 (06:18→11:39)
[2018-11-21 07:42] VITALS: BP 165/82
[2018-11-21] MEDS: CARVEDILOL 3.125 MG TABLET PO SCH (08:21)
[2018-11-21] MEDS: HEPARIN SODIUM,PORCINE 5,000 UNITS/ML VIAL SQ SCH (08:21)
[2018-11-21] MEDS: SEVELAMER CARBONATE 800 MG TABLET PO SCH ×2 (08:21→11:38)
[2018-11-21] MEDS: ATORVASTATIN CALCIUM 20 MG TABLET PO SCH (08:21)
[2018-11-21] MEDS: FERROUS SULFATE 325 MG EC TABLET PO SCH ×2 (08:21→11:38)
[2018-11-21] MEDS: LevETIRAcetam 500 MG TABLET PO SCH (08:21)
[2018-11-21] MEDS: LOSARTAN POTASSIUM 25 MG TABLET PO SCH (08:21)
[2018-11-21] MEDS: NIFEdipine 60 MG ER TABLET PO SCH (08:21)
[2018-11-21] MEDS: HydrALAZINE HCL 50 MG TABLET PO SCH (08:21)
[2018-11-21] MEDS: VITAMIN B COMP/VIT C/FOLIC ACID CAPSULE PO SCH (08:21)
[2018-11-21] MEDS: LANSOPRAZOLE 30 MG SOLUBLE TABLET PO SCH (08:21)
[2018-11-21] MEDS: DOCUSATE SODIUM 100 MG CAPSULE PO SCH (08:22)
[2018-11-21] MEDS: INSULIN GLARGINE,HUM.REC.ANLOG 100 UNITS/ML SQ SCH (08:26)
[2018-11-21 12:14] VITALS: BP 174/78
[2018-11-21] MEDS ORDERED: HydrALAZINE HCL 20 MG/ML VIAL IVP ONE (14:00)
[2018-11-21 14:01] VITALS: BP 146/60
[2018-11-21 14:37] LABS: THYROID STIMULATING HORMONE 17.53 uIU/mL (0.36-3.74)
[2018-11-21] MEDS ORDERED: GABA-529 PO (15:12)
[2018-11-21] MEDS ORDERED: HYDR-4061 PO (15:14)
[2018-11-21] MEDS ORDERED: HydrALAZINE HCL 50 MG TABLET PO SCH (16:00)
[2018-11-21] MEDS ORDERED: LOSARTAN POTASSIUM 50 MG TABLET PO SCH (21:00)
[2018-11-21 21:25] LABS: GLUCOMETER DEV NAME(LOC) 5S.1; GLUCOSE,POINT OF CARE 185 MG/DL (70-110)
[2018-11-21 21:25] LABS: GLUCOMETER DEV NAME(LOC) 5S.1; GLUCOSE,POINT OF CARE 74 MG/DL (70-110)
[2018-11-22] MEDS ORDERED: INSULIN GLARGINE,HUM.REC.ANLOG 100 UNITS/ML SQ SCH (09:00)
== END 2018-11-21 15:30 | disposition home or self-care (01) | DRG 871 ==
LOC: EMS 09:14 → 5S 13:21 → EMS 14:42 → 5S 15:04
PROVIDERS: ADMIT Internal Medicine; ATTEND Internal Medicine
PROC: 02HV33Z Insertion of Infusion Device into Superior Vena Cava, Percutaneous Approach (ICD-10-PCS; principal; 2018-11-18)
PROC: 5A1D70Z Performance of Urinary Filtration, Intermittent, Less than 6 Hours Per Day (ICD-10-PCS; 2018-11-18)
PROC: 5A1D70Z Performance of Urinary Filtration, Intermittent, Less than 6 Hours Per Day (ICD-10-PCS; 2018-11-20)
DX: A41.9 Sepsis, unspecified organism (principal); N18.6 End stage renal disease; G93.41 Metabolic encephalopathy; J18.9 Pneumonia, unspecified organism; I16.1 Hypertensive emergency; I13.2 Hypertensive heart and chronic kidney disease with heart failure and with stage 5 chronic kidney disease, or end stage renal disease; E46 Unspecified protein-calorie malnutrition; N17.9 Acute kidney failure, unspecified; Z68.1 Body mass index [BMI] 19.9 or less, adult; E11.22 Type 2 diabetes mellitus with diabetic chronic kidney disease; E87.5 Hyperkalemia; I50.9 Heart failure, unspecified; E03.9 Hypothyroidism, unspecified; D63.1 Anemia in chronic kidney disease; E11.65 Type 2 diabetes mellitus with hyperglycemia; E83.52 Hypercalcemia; G89.29 Other chronic pain; I67.2 Cerebral atherosclerosis; I70.0 Atherosclerosis of aorta; M17.11 Unilateral primary osteoarthritis, right knee; Z79.4 Long term (current) use of insulin; Z83.3 Family history of diabetes mellitus; Z86.73 Personal history of transient ischemic attack (TIA), and cerebral infarction without residual deficits; Z99.2 Dependence on renal dialysis
CPT/HCPCS: 70450; 83605; 84443; 86709; 87040; 87081; 87340; 93005; 94640; 96365; 96366; 96368; 96375; 99291; G0378; J0360; J0696; J1644; J1815; J2060; J2405; J3370; J7030

== ENCOUNTER 2018-12-08 13:59 | Emergency (ER) | payer MEDICARE, OTHER ==
[~2018-12-08] VITALS: Ht 157.5 cm; Wt 50.0 kg
[~2018-12-08 13:59] MED LIST changes: -DSS100 PO; +GABA-529 PO; +HYDR-4061 PO
[2018-12-08] MEDS ORDERED: DSS100 PO (14:26)
[2018-12-08] MEDS ORDERED: DEXTROSE 5%-0.9% SODIUM CHL 1,000 ML IV ONE (14:45)
[2018-12-08 15:22] LABS: BASOPHILS % (AUTO) 0.4 % (0.0-2.0); EOSINOPHILS % (AUTO) 1.9 % (1.0-6.0); HEMOGLOBIN 12.8 g/dL (12.0-16.0); LYMPHOCYTES # (AUTO) 0.8 K/uL (1.0-4.8); LYMPHOCYTES % (AUTO) 6.4 % (22.0-44.0); MEAN CORPUSCULAR HEMOGLOBIN 31.3 pg (26.0-34.0); MEAN CORPUSCULAR HGB CONC 32.1 G/dL (31.0-37.0); MEAN CORPUSCULAR VOLUME 97 fL (80-100); MONOCYTES # (AUTO) 0.8 K/uL (0.1-1.0); MONOCYTES % (AUTO) 6.6 % (2.0-9.0); NEUTROPHILS # (AUTO) 10.2 K/uL (1.8-7.7); NEUTROPHILS % (AUTO) 84.7 % (40.0-70.0); PLATELET COUNT (AUTO) 178 K/uL (150-450); RED BLOOD CELL COUNT(AUTO) 4.11 MIL/uL (4.00-5.20); RED CELL DISTRIBUTION WIDTH 19.3 % (11.5-14.5)
[2018-12-08 15:39] LABS: CREATININE 6.71 mg/dL (0.60-1.30); POTASSIUM 4.1 mmol/L (3.5-5.1)
[2018-12-08 15:44] LABS: PROTHROMBIN TIME 10.4 SEC (9.4-11.6)
[2018-12-08 15:45] LABS: ALBUMIN 3.8 g/dL (3.4-5.0); BILIRUBIN,TOTAL 0.4 mg/dL (0.1-1.0); TOTAL PROTEIN, SERUM 8.4 g/dL (6.4-8.2)
[2018-12-08 17:39] LABS: GLUCOSE,POINT OF CARE 171 MG/DL (70-110)
[2018-12-08 20:34] LABS: GLUCOSE,POINT OF CARE 267 MG/DL (70-110)
[2018-12-08 22:36] VITALS: BP 116/72
== END 2018-12-09 03:15 | disposition home or self-care (01) ==
LOC: EMS 14:03
DX: E11.649 Type 2 diabetes mellitus with hypoglycemia without coma (principal); I12.0 Hypertensive chronic kidney disease with stage 5 chronic kidney disease or end stage renal disease; E11.22 Type 2 diabetes mellitus with diabetic chronic kidney disease; N18.6 End stage renal disease; Z99.2 Dependence on renal dialysis; Z79.4 Long term (current) use of insulin
CPT/HCPCS: 71045; 80053; 82550; 82962; 83880; 84484; 85025; 85610; 85730; 93005; 96360; 96361; 99285; J7042

== ENCOUNTER 2018-12-26 23:24 | Inpatient (IN) | payer MEDICARE, OTHER ==
[~2018-12-26] VITALS: Ht 149.9 cm; Wt 48.5 kg
[~2018-12-26 23:24] MED LIST changes: +DSS100 PO; -FOLI1CAP2 PO; -GABA-529 PO; -HYDR-4061 PO; -LEVO75TA10; +LEVO75TA10 PO
[2018-12-26 23:58] LABS: HEMOGLOBIN 15.7 g/dL (12.0-16.0); MEAN CORPUSCULAR HEMOGLOBIN 31.1 pg (26.0-34.0); MEAN CORPUSCULAR HGB CONC 33.4 G/dL (31.0-37.0); MEAN CORPUSCULAR VOLUME 93 fL (80-100); RED BLOOD CELL COUNT(AUTO) 5.05 MIL/uL (4.00-5.20); RED CELL DISTRIBUTION WIDTH 16.4 % (11.5-14.5)
[2018-12-27] VITALS (11 sets, daily range): BP systolic 114–202; BP diastolic 59–95
[2018-12-27 00:22] LABS: LACTIC ACID 1.8 mmol/L (0.4-2.0)
[2018-12-27 00:49] LABS: PLATELET COUNT (AUTO) 123 K/uL (150-450)
[2018-12-27 00:50] LABS: BAND NEUTROPHILS % (MANUAL) 0 % (0-5)
[2018-12-27 00:54] LABS: BASOPHILS % (MANUAL) 1 % (0-2); EOSINOPHILS % (MANUAL) 6 % (1-6); LYMPHOCYTES % (MANUAL) 32 % (22-44); MONOCYTES % (MANUAL) 12 % (2-9); SEGMENTED NEUTROPHILS % 49 % (40-70)
[2018-12-27 01:29] LABS: CALCIUM, TOTAL 10.5 mg/dL (8.8-10.5); CREATININE 7.37 mg/dL (0.60-1.30); POTASSIUM 4.8 mmol/L (3.5-5.1)
[2018-12-27 01:35] LABS: ALBUMIN 4.1 g/dL (3.4-5.0); BILIRUBIN,TOTAL 0.6 mg/dL (0.1-1.0); TOTAL PROTEIN, SERUM 9.1 g/dL (6.4-8.2)
[2018-12-27] MEDS ORDERED: HydrALAZINE HCL 50 MG TABLET PO PRN (03:00)
[2018-12-27] MEDS ORDERED: INSULIN LISPRO 100 UNITS/ML SQ PRN ×2 (06:00)
[2018-12-27] MEDS ORDERED: ONDANSETRON HCL 4 MG/2 ML VIAL IVP PRN (06:00)
[2018-12-27] MEDS ORDERED: DEXTROSE 50%-WATER 25 GM/50 ML SYG IVP PRN (06:00)
[2018-12-27] MEDS ORDERED: 0.9% SODIUM CHLORIDE 10 ML SYRINGE IVP PRN (06:00)
[2018-12-27] MEDS ORDERED: GLUCAGON,HUMAN RECOMBINANT 1 MG VIAL IM PRN (06:00)
[2018-12-27] MEDS: LEVOTHYROXINE SODIUM 75 MCG TABLET PO SCH (06:19)
[2018-12-27 06:44] LABS: GLUCOMETER DEV NAME(LOC) 5N.2; GLUCOSE,POINT OF CARE 200 MG/DL (70-110)
[2018-12-27] MEDS: HydrALAZINE HCL 50 MG TABLET PO SCH ×4 (08:22→20:18)
[2018-12-27] MEDS: PANTOPRAZOLE SODIUM 40 MG/VIAL IVP SCH (08:22)
[2018-12-27] MEDS: HEPARIN SODIUM,PORCINE 5,000 UNITS/ML VIAL SQ SCH ×2 (08:23→20:18)
[2018-12-27] MEDS: LevETIRAcetam 500 MG TABLET PO SCH ×2 (08:23→20:17)
[2018-12-27] MEDS: CARVEDILOL 3.125 MG TABLET PO SCH ×2 (08:23→20:17)
[2018-12-27] MEDS: SEVELAMER CARBONATE 800 MG TABLET PO SCH ×3 (08:23→18:37)
[2018-12-27] MEDS ORDERED: LOSARTAN POTASSIUM 25 MG TABLET PO SCH (09:00)
[2018-12-27] MEDS: NIFEdipine 60 MG ER TABLET PO SCH (09:41)
[2018-12-27] MEDS ORDERED: ENALAPRILAT DIHYDRATE 1.25 MG/ML VIAL IVP PRN (10:30)
[2018-12-27] MEDS: CloNIDine HCL 0.1 MG TABLET PO PRN (12:13)
[2018-12-27] MEDS ORDERED: INSULIN LISPRO 100 UNITS/ML SQ ONE (12:15)
[2018-12-27 12:34] LABS: GLUCOMETER DEV NAME(LOC) 5N.1; GLUCOSE,POINT OF CARE 577 MG/DL (70-110)
[2018-12-27] MEDS ORDERED: INSULIN GLARGINE,HUM.REC.ANLOG 100 UNITS/ML SQ SCH (13:30)
[2018-12-27] MEDS ORDERED: DEXTROSE 50%-WATER 25 GM/50 ML SYRINGE IVP PRN (13:30)
[2018-12-27 15:24] LABS: GLUCOMETER DEV NAME(LOC) 5N.2; GLUCOSE,POINT OF CARE > 600 MG/DL (70-110)
[2018-12-27 15:24] LABS: GLUCOMETER DEV NAME(LOC) 5N.2; GLUCOSE,POINT OF CARE 515 MG/DL (70-110)
[2018-12-27] MEDS ORDERED: SODIUM CHLORIDE 0.9% 1,000 ML IV ONE (20:09)
[2018-12-27] MEDS: ATORVASTATIN CALCIUM 20 MG TABLET PO SCH (20:17)
[2018-12-27] MEDS: LOSARTAN POTASSIUM 50 MG TABLET PO SCH (20:18)
[2018-12-27] MEDS: INSULIN LISPRO 100 UNITS/ML SQ PRN (20:26)
[2018-12-27 23:19] LABS: GLUCOMETER DEV NAME(LOC) 5N.2; GLUCOSE,POINT OF CARE 135 MG/DL (70-110)
[2018-12-27 23:19] LABS: GLUCOMETER DEV NAME(LOC) 5N.1; GLUCOSE,POINT OF CARE 176 MG/DL (70-110)
[2018-12-27 23:19] LABS: GLUCOMETER DEV NAME(LOC) 5N.2; GLUCOSE,POINT OF CARE 229 MG/DL (70-110)
[2018-12-28] VITALS (8 sets, daily range): BP systolic 128–178; BP diastolic 59–92
[2018-12-28] MEDS: LEVOTHYROXINE SODIUM 75 MCG TABLET PO SCH (06:18)
[2018-12-28 06:49] LABS: GLUCOMETER DEV NAME(LOC) 5N.2; GLUCOSE,POINT OF CARE 17 MG/DL (70-110)
[2018-12-28 06:50] LABS: GLUCOMETER DEV NAME(LOC) 5N.2; GLUCOSE,POINT OF CARE 168 MG/DL (70-110)
[2018-12-28] MEDS: PANTOPRAZOLE SODIUM 40 MG/VIAL IVP SCH (08:30)
[2018-12-28] MEDS: CARVEDILOL 3.125 MG TABLET PO SCH ×2 (08:30→21:45)
[2018-12-28] MEDS: LevETIRAcetam 500 MG TABLET PO SCH ×2 (08:30→21:45)
[2018-12-28] MEDS: NIFEdipine 60 MG ER TABLET PO SCH (08:30)
[2018-12-28] MEDS: HydrALAZINE HCL 50 MG TABLET PO SCH ×4 (08:30→21:44)
[2018-12-28] MEDS: LOSARTAN POTASSIUM 50 MG TABLET PO SCH ×2 (08:30→21:44)
[2018-12-28] MEDS: SEVELAMER CARBONATE 800 MG TABLET PO SCH ×3 (08:30→17:38)
[2018-12-28] MEDS: HEPARIN SODIUM,PORCINE 5,000 UNITS/ML VIAL SQ SCH ×2 (08:31→21:44)
[2018-12-28] MEDS ORDERED: INSULIN GLARGINE,HUM.REC.ANLOG 100 UNITS/ML SQ SCH (09:00)
[2018-12-28 09:29] LABS: GLUCOMETER DEV NAME(LOC) 5N.2; GLUCOSE,POINT OF CARE 223 MG/DL (70-110)
[2018-12-28] MEDS: INSULIN LISPRO 100 UNITS/ML SQ PRN ×2 (12:01→20:33)
[2018-12-28 12:40] LABS: GLUCOMETER DEV NAME(LOC) 5N.1; GLUCOSE,POINT OF CARE 343 MG/DL (70-110)
[2018-12-28] MEDS ORDERED: SODIUM CHLORIDE 0.9% 1,000 ML IV ONE ×2 (16:19)
[2018-12-28] MEDS: ATORVASTATIN CALCIUM 20 MG TABLET PO SCH (21:44)
[2018-12-28 21:47] LABS: GLUCOMETER DEV NAME(LOC) 5N.1; GLUCOSE,POINT OF CARE 137 MG/DL (70-110)
[2018-12-28 22:33] LABS: GLUCOMETER DEV NAME(LOC) 5N.2; GLUCOSE,POINT OF CARE 97 MG/DL (70-110)
[2018-12-29] VITALS (7 sets, daily range): BP systolic 136–168; BP diastolic 61–75
[2018-12-29] MEDS ORDERED: INSULIN LISPRO 100 UNITS/ML SQ ONE (06:00)
[2018-12-29] MEDS: LEVOTHYROXINE SODIUM 75 MCG TABLET PO SCH (06:04)
[2018-12-29 06:44] LABS: GLUCOMETER DEV NAME(LOC) 5N.1; GLUCOSE,POINT OF CARE 447 MG/DL (70-110)
[2018-12-29] MEDS: HEPARIN SODIUM,PORCINE 5,000 UNITS/ML VIAL SQ SCH ×2 (08:42→21:05)
[2018-12-29] MEDS: CARVEDILOL 3.125 MG TABLET PO SCH ×2 (08:42→20:42)
[2018-12-29] MEDS: HydrALAZINE HCL 50 MG TABLET PO SCH ×4 (08:42→20:56)
[2018-12-29] MEDS: LevETIRAcetam 500 MG TABLET PO SCH ×2 (08:42→20:42)
[2018-12-29] MEDS: SEVELAMER CARBONATE 800 MG TABLET PO SCH ×3 (08:42→17:30)
[2018-12-29] MEDS: NIFEdipine 60 MG ER TABLET PO SCH (08:42)
[2018-12-29] MEDS: LOSARTAN POTASSIUM 50 MG TABLET PO SCH ×2 (08:42→20:41)
[2018-12-29] MEDS: PANTOPRAZOLE SODIUM 40 MG/VIAL IVP SCH (08:42)
[2018-12-29 13:04] LABS: GLUCOMETER DEV NAME(LOC) 5N.1; GLUCOSE,POINT OF CARE 108 MG/DL (70-110)
[2018-12-29 17:44] LABS: GLUCOMETER DEV NAME(LOC) 5N.2; GLUCOSE,POINT OF CARE > 600 MG/DL (70-110)
[2018-12-29] MEDS: INSULIN LISPRO 100 UNITS/ML SQ PRN ×2 (18:03→20:59)
[2018-12-29] MEDS: ATORVASTATIN CALCIUM 20 MG TABLET PO SCH (20:42)
[2018-12-29] MEDS: INSULIN GLARGINE,HUM.REC.ANLOG 100 UNITS/ML SQ SCH (20:58)
[2018-12-29 22:59] LABS: GLUCOMETER DEV NAME(LOC) 5N.2; GLUCOSE,POINT OF CARE 499 MG/DL (70-110)
[2018-12-29 23:59] LABS: GLUCOMETER DEV NAME(LOC) 5N.1; GLUCOSE,POINT OF CARE 220 MG/DL (70-110)
[2018-12-30 04:14] VITALS: BP 158/72
[2018-12-30 06:35] LABS: GLUCOMETER DEV NAME(LOC) 5N.2; GLUCOSE,POINT OF CARE 40 MG/DL (70-110)
[2018-12-30 06:35] LABS: GLUCOMETER DEV NAME(LOC) 5N.2; GLUCOSE,POINT OF CARE 114 MG/DL (70-110)
[2018-12-30] MEDS: LEVOTHYROXINE SODIUM 75 MCG TABLET PO SCH (06:50)
[2018-12-30] MEDS: SEVELAMER CARBONATE 800 MG TABLET PO SCH ×3 (07:58→17:35)
[2018-12-30] MEDS: HydrALAZINE HCL 50 MG TABLET PO SCH ×4 (07:59→21:35)
[2018-12-30] MEDS: LOSARTAN POTASSIUM 50 MG TABLET PO SCH ×2 (07:59→21:35)
[2018-12-30] MEDS: PANTOPRAZOLE SODIUM 40 MG/VIAL IVP SCH (07:59)
[2018-12-30] MEDS: CARVEDILOL 3.125 MG TABLET PO SCH ×2 (07:59→21:35)
[2018-12-30] MEDS: NIFEdipine 60 MG ER TABLET PO SCH (07:59)
[2018-12-30] MEDS: HEPARIN SODIUM,PORCINE 5,000 UNITS/ML VIAL SQ SCH ×2 (07:59→21:35)
[2018-12-30] MEDS: LevETIRAcetam 500 MG TABLET PO SCH ×2 (07:59→21:35)
[2018-12-30 08:02] VITALS: BP 192/92
[2018-12-30 08:14] LABS: GLUCOMETER DEV NAME(LOC) 5N.2; GLUCOSE,POINT OF CARE 172 MG/DL (70-110)
[2018-12-30] MEDS: INSULIN GLARGINE,HUM.REC.ANLOG 100 UNITS/ML SQ SCH ×2 (10:21→21:32)
[2018-12-30 11:41] VITALS: BP 161/69
[2018-12-30] MEDS: INSULIN LISPRO 100 UNITS/ML SQ PRN ×2 (12:40→17:41)
[2018-12-30 12:59] LABS: GLUCOMETER DEV NAME(LOC) 5N.2; GLUCOSE,POINT OF CARE 334 MG/DL (70-110)
[2018-12-30 12:59] LABS: GLUCOMETER DEV NAME(LOC) 5N.2; GLUCOSE,POINT OF CARE 253 MG/DL (70-110)
[2018-12-30 15:44] VITALS: BP 141/68
[2018-12-30 19:21] VITALS: BP 143/68
[2018-12-30] MEDS: ATORVASTATIN CALCIUM 20 MG TABLET PO SCH (21:35)
[2018-12-30 22:34] LABS: GLUCOMETER DEV NAME(LOC) 5N.1; GLUCOSE,POINT OF CARE 148 MG/DL (70-110)
[2018-12-30 23:27] VITALS: BP 152/73
[2018-12-31 02:23] LABS: GLUCOMETER DEV NAME(LOC) 5N.2; GLUCOSE,POINT OF CARE 195 MG/DL (70-110)
[2018-12-31 04:24] VITALS: BP 179/80
[2018-12-31] MEDS: CloNIDine HCL 0.1 MG TABLET PO PRN (04:47)
[2018-12-31] MEDS: LEVOTHYROXINE SODIUM 75 MCG TABLET PO SCH (06:14)
[2018-12-31] MEDS: INSULIN LISPRO 100 UNITS/ML SQ PRN (06:40)
[2018-12-31 07:45] VITALS: BP 189/71
[2018-12-31] MEDS: LevETIRAcetam 500 MG TABLET PO SCH (08:24)
[2018-12-31] MEDS: CARVEDILOL 3.125 MG TABLET PO SCH (08:24)
[2018-12-31] MEDS: LOSARTAN POTASSIUM 50 MG TABLET PO SCH (08:24)
[2018-12-31] MEDS: HydrALAZINE HCL 50 MG TABLET PO SCH ×2 (08:24→12:02)
[2018-12-31] MEDS: NIFEdipine 60 MG ER TABLET PO SCH (08:24)
[2018-12-31] MEDS: HEPARIN SODIUM,PORCINE 5,000 UNITS/ML VIAL SQ SCH (08:24)
[2018-12-31] MEDS: PANTOPRAZOLE SODIUM 40 MG/VIAL IVP SCH (08:25)
[2018-12-31] MEDS: SEVELAMER CARBONATE 800 MG TABLET PO SCH ×2 (08:32→12:02)
[2018-12-31] MEDS ORDERED: INSULIN GLARGINE,HUM.REC.ANLOG 100 UNITS/ML SQ SCH ×2 (09:00)
[2018-12-31 11:12] VITALS: BP 135/59
[2018-12-31 14:59] LABS: GLUCOMETER DEV NAME(LOC) 5N.2; GLUCOSE,POINT OF CARE 63 MG/DL (70-110)
[2018-12-31 14:59] LABS: GLUCOMETER DEV NAME(LOC) 5N.2; GLUCOSE,POINT OF CARE 433 MG/DL (70-110)
[2018-12-31 14:59] LABS: GLUCOMETER DEV NAME(LOC) 5N.2; GLUCOSE,POINT OF CARE 239 MG/DL (70-110)
[2018-12-31] MEDS ORDERED: INSLAN SQ (14:59)
[2018-12-31] MEDS ORDERED: INSU100V SQ (15:03)
== END 2018-12-31 16:40 | disposition home or self-care (01) | DRG 638 ==
LOC: EMS 23:25 → 5N 12-27 02:12
PROVIDERS: ADMIT Internal Medicine; ATTEND Internal Medicine
PROC: 5A1D70Z Performance of Urinary Filtration, Intermittent, Less than 6 Hours Per Day (ICD-10-PCS; principal; 2018-12-27)
PROC: 5A1D70Z Performance of Urinary Filtration, Intermittent, Less than 6 Hours Per Day (ICD-10-PCS; 2018-12-28)
PROC: 5A1D70Z Performance of Urinary Filtration, Intermittent, Less than 6 Hours Per Day (ICD-10-PCS; 2018-12-30)
DX: E11.649 Type 2 diabetes mellitus with hypoglycemia without coma (principal); I13.2 Hypertensive heart and chronic kidney disease with heart failure and with stage 5 chronic kidney disease, or end stage renal disease; N18.6 End stage renal disease; N25.81 Secondary hyperparathyroidism of renal origin; D63.1 Anemia in chronic kidney disease; E03.9 Hypothyroidism, unspecified; E11.21 Type 2 diabetes mellitus with diabetic nephropathy; E11.22 Type 2 diabetes mellitus with diabetic chronic kidney disease; E78.5 Hyperlipidemia, unspecified; G40.909 Epilepsy, unspecified, not intractable, without status epilepticus; I50.9 Heart failure, unspecified; I70.0 Atherosclerosis of aorta; Z79.4 Long term (current) use of insulin; Z83.3 Family history of diabetes mellitus; Z86.73 Personal history of transient ischemic attack (TIA), and cerebral infarction without residual deficits; Z99.2 Dependence on renal dialysis
CPT/HCPCS: 51702; 82947; 83605; 86709; 87040; 87081; 87340; 93005; 96372; 96374; 99291; C9113; G0378; J1644; J1815; J3490; J7030

== ENCOUNTER 2019-03-28 13:26 | Emergency (ER) | payer MEDICARE, OTHER ==
[~2019-03-28] VITALS: Ht 157.5 cm; Wt 46.8 kg
[~2019-03-28 13:26] MED LIST changes: +INSLAN SQ; -INSNOV SQ; +INSU100V SQ; -INSU100V12 SQ
[2019-03-28 13:54] LABS: GLUCOSE,POINT OF CARE 164 MG/DL (70-110)
[2019-03-28 16:24] LABS: BASOPHILS % (AUTO) 0.5 % (0.0-2.0); HEMATOCRIT 30.3 % (36-46); HEMOGLOBIN 10.1 g/dL (12.0-16.0); LYMPHOCYTES # (AUTO) 0.9 K/uL (1.0-4.8); LYMPHOCYTES % (AUTO) 16.2 % (22.0-44.0); MEAN CORPUSCULAR HEMOGLOBIN 32.6 pg (26.0-34.0); MEAN CORPUSCULAR HGB CONC 33.5 G/dL (31.0-37.0); MEAN CORPUSCULAR VOLUME 98 fL (80-100); MONOCYTES # (AUTO) 0.4 K/uL (0.1-1.0); MONOCYTES % (AUTO) 7.4 % (2.0-9.0); NEUTROPHILS # (AUTO) 3.7 K/uL (1.8-7.7); NEUTROPHILS % (AUTO) 69.9 % (40.0-70.0); PLATELET COUNT (AUTO) 151 K/uL (150-450); RED BLOOD CELL COUNT(AUTO) 3.11 MIL/uL (4.00-5.20); RED CELL DISTRIBUTION WIDTH 16.2 % (11.5-14.5)
[2019-03-28 16:40] LABS: ALBUMIN 3.9 g/dL (3.4-5.0); BILIRUBIN,TOTAL 0.4 mg/dL (0.1-1.0); CALCIUM, TOTAL 9.2 mg/dL (8.8-10.5); CREATININE 12.86 mg/dL (0.60-1.30); POTASSIUM 5.9 mmol/L (3.5-5.1); TOTAL PROTEIN, SERUM 7.9 g/dL (6.4-8.2)
[2019-03-28 16:45] VITALS: BP 132/68
[2019-03-28 16:52] LABS: LACTIC ACID 1.1 mmol/L (0.4-2.0)
== END 2019-03-28 17:23 | disposition left against medical advice (07) ==
LOC: EMS 13:29
DX: I12.0 Hypertensive chronic kidney disease with stage 5 chronic kidney disease or end stage renal disease (principal); E11.22 Type 2 diabetes mellitus with diabetic chronic kidney disease; N18.6 End stage renal disease; E87.5 Hyperkalemia; Z99.2 Dependence on renal dialysis
CPT/HCPCS: 83605; 93005

== ENCOUNTER 2019-12-20 08:13 | Inpatient (IN) | payer MEDICARE, OTHER ==
[~2019-12-20] VITALS: Ht 157.5 cm; Wt 50.0 kg
[~2019-12-20 08:13] MED LIST changes: -LOSA25TA41 PO; +LOSA25TA71 PO; +NIFE-39 PO; -NIFE60TA71 PO; +SEVE800T17 PO; -SEVEC800 PO
[2019-12-20 08:49] LABS: BASOPHILS % (AUTO) 0.8 % (0.0-2.0); HEMATOCRIT 33.8 % (36-46); HEMOGLOBIN 11.4 g/dL (12.0-16.0); LYMPHOCYTES # (AUTO) 1.4 K/uL (1.0-4.8); LYMPHOCYTES % (AUTO) 25.8 % (22.0-44.0); MEAN CORPUSCULAR HEMOGLOBIN 33.2 pg (26.0-34.0); MEAN CORPUSCULAR HGB CONC 33.7 G/dL (31.0-37.0); MEAN CORPUSCULAR VOLUME 99 fL (80-100); MONOCYTES # (AUTO) 0.6 K/uL (0.1-1.0); MONOCYTES % (AUTO) 10.9 % (2.0-9.0); NEUTROPHILS # (AUTO) 3.1 K/uL (1.8-7.7); NEUTROPHILS % (AUTO) 57.5 % (40.0-70.0); PLATELET COUNT (AUTO) 156 K/uL (150-450); RED BLOOD CELL COUNT(AUTO) 3.42 MIL/uL (4.00-5.20); RED CELL DISTRIBUTION WIDTH 15.3 % (11.5-14.5)
[2019-12-20 08:59] LABS: CALCIUM, TOTAL 8.3 mg/dL (8.8-10.5); CREATININE 10.57 mg/dL (0.60-1.30); POTASSIUM 5.3 mmol/L (3.5-5.1)
[2019-12-20] MEDS ORDERED: DEXTROSE 5%-0.45% SODIUM CHL 1,000 ML IV ONE (09:00)
[2019-12-20 09:01] LABS: PROTHROMBIN TIME 10.5 SEC (9.4-11.6)
[2019-12-20 09:02] LABS: GLUCOSE,POINT OF CARE 78 MG/DL (70-110)
[2019-12-20 09:09] LABS: AMMONIA < 10 umol/L (11-32); TROPONIN I < 0.02 ng/mL (0.00-0.05)
[2019-12-20 09:10] LABS: LACTIC ACID 1.6 mmol/L (0.4-2.0)
[2019-12-20] MEDS ORDERED: CALCIUM GLUCONATE 1,000 MG in DEXTROSE 5%-WATER 50 ML IV ONE (09:15)
[2019-12-20] MEDS ORDERED: ALBUTEROL SULFATE 5 MG/ML 20 ML NEB SOLN [BULK] NEB ONE (09:15)
[2019-12-20 09:25] LABS: ALBUMIN 3.7 g/dL (3.4-5.0); BILIRUBIN,TOTAL 0.4 mg/dL (0.1-1.0); TOTAL PROTEIN, SERUM 8.4 g/dL (6.4-8.2)
[2019-12-20 09:58] LABS: GLUCOSE,POINT OF CARE 96 MG/DL (70-110)
[2019-12-20] MEDS ORDERED: 0.9% SODIUM CHLORIDE 5 ML NEB SOLUTION NEB ONE (10:01)
[2019-12-20] MEDS ORDERED: SODIUM CHLORIDE 77 MEQ in DEXTROSE 10%-WATER 1,000 ML IV ONE (10:30)
[2019-12-20 10:42] LABS: GLUCOSE,POINT OF CARE 161 MG/DL (70-110)
[2019-12-20] MEDS ORDERED: ACETAMINOPHEN 325 MG TABLET PO PRN ×2 (10:45→11:00)
[2019-12-20] MEDS ORDERED: 0.9% SODIUM CHLORIDE 10 ML SYRINGE IVP PRN (10:45)
[2019-12-20] MEDS ORDERED: ONDANSETRON HCL 4 MG/2 ML VIAL IVP PRN ×2 (10:45→11:00)
[2019-12-20] MEDS ORDERED: DOCUSATE SODIUM 100 MG CAPSULE PO PRN (11:00)
[2019-12-20] MEDS ORDERED: LEVE500T53 PO (11:00)
[2019-12-20] MEDS ORDERED: ALBUTEROL SULFATE 2.5 MG/0.5 ML NEB SOLUTION NEB PRN (11:00)
[2019-12-20] MEDS ORDERED: IPRATROPIUM BROMIDE 0.5 MG/2.5 ML NEB SOLUTION NEB PRN (11:00)
[2019-12-20] MEDS ORDERED: BISACODYL 10 MG RECTAL RECTAL SUPPOSITORY PR PRN (11:00)
[2019-12-20] MEDS ORDERED: MAGNESIUM HYDROXIDE SUSPENSION 30 ML UDCUP PO PRN (11:00)
[2019-12-20] MEDS ORDERED: DOCU-275 PO (11:00)
[2019-12-20 11:22] LABS: GLUCOSE,POINT OF CARE 203 MG/DL (70-110)
[2019-12-20] MEDS: HydrALAZINE HCL 50 MG TABLET PO SCH ×3 (12:14→20:27)
[2019-12-20] MEDS: FERROUS SULFATE 325 MG EC TABLET PO SCH ×3 (12:14→20:26)
[2019-12-20] MEDS: SEVELAMER CARBONATE 800 MG TABLET PO SCH ×2 (12:14→17:55)
[2019-12-20 12:50] LABS: GLUCOSE,POINT OF CARE 270 MG/DL (70-110)
[2019-12-20 13:00] VITALS: BP 140/72
[2019-12-20 13:27] LABS: GLUCOSE,POINT OF CARE 340 MG/DL (70-110)
[2019-12-20 14:25] LABS: GLUCOSE,POINT OF CARE 377 MG/DL (70-110)
[2019-12-20] MEDS ORDERED: DEXTROSE 50%-WATER 25 GM/50 ML SYRINGE IVP PRN (15:30)
[2019-12-20 16:00] VITALS: BP 150/70
[2019-12-20 17:10] LABS: GLUCOSE,POINT OF CARE 297 MG/DL (70-110)
[2019-12-20 18:00] LABS: GLUCOSE,POINT OF CARE 297 MG/DL (70-110)
[2019-12-20 18:53] LABS: GLUCOSE,POINT OF CARE 175 MG/DL (70-110)
[2019-12-20 20:00] VITALS: BP 137/55
[2019-12-20] MEDS: LevETIRAcetam 500 MG TABLET PO SCH (20:26)
[2019-12-20] MEDS: HEPARIN SODIUM,PORCINE 5,000 UNITS/ML VIAL SQ SCH (20:26)
[2019-12-20] MEDS: CARVEDILOL 3.125 MG TABLET PO SCH (20:27)
[2019-12-20] MEDS: INSULIN LISPRO 100 UNITS/ML SQ PRN ×2 (20:36→22:23)
[2019-12-20] MEDS ORDERED: ATORVASTATIN CALCIUM 20 MG TABLET PO SCH (21:00)
[2019-12-20 23:39] VITALS: BP 129/57
[2019-12-21 00:13] LABS: GLUCOSE,POINT OF CARE 393 MG/DL (70-110)
[2019-12-21] MEDS: INSULIN LISPRO 100 UNITS/ML SQ PRN ×3 (02:46→12:19)
[2019-12-21 04:43] VITALS: BP 112/55
[2019-12-21 07:11] LABS: GLUCOMETER DEV NAME(LOC) 5S.1; GLUCOSE,POINT OF CARE 147 MG/DL (70-110)
[2019-12-21 07:24] LABS: EOSINOPHILS % (AUTO) 3.1 % (1.0-6.0); HEMATOCRIT 29.1 % (36-46); HEMOGLOBIN 9.9 g/dL (12.0-16.0); LYMPHOCYTES # (AUTO) 0.7 K/uL (1.0-4.8); LYMPHOCYTES % (AUTO) 16.7 % (22.0-44.0); MEAN CORPUSCULAR HEMOGLOBIN 33.8 pg (26.0-34.0); MEAN CORPUSCULAR VOLUME 99 fL (80-100); MONOCYTES # (AUTO) 0.5 K/uL (0.1-1.0); MONOCYTES % (AUTO) 11.1 % (2.0-9.0); NEUTROPHILS % (AUTO) 68.1 % (40.0-70.0); PLATELET COUNT (AUTO) 139 K/uL (150-450); RED BLOOD CELL COUNT(AUTO) 2.94 MIL/uL (4.00-5.20); RED CELL DISTRIBUTION WIDTH 15.1 % (11.5-14.5)
[2019-12-21 07:31] LABS: HEMOGLOBIN A1C 8.9 % (4.5-6.2)
[2019-12-21 07:35] VITALS: BP 130/54
[2019-12-21 07:48] LABS: ALBUMIN 2.9 g/dL (3.4-5.0); BILIRUBIN,TOTAL 0.4 mg/dL (0.1-1.0); CALCIUM, TOTAL 8.1 mg/dL (8.8-10.5); CREATININE 6.22 mg/dL (0.60-1.30); FREE T4 (FREE THYROXINE) 0.98 ng/dL (0.76-1.46); PHOSPHORUS 4.2 mg/dL (2.5-4.9); POTASSIUM 4.7 mmol/L (3.5-5.1); THYROID STIMULATING HORMONE 4.02 uIU/mL (0.36-3.74); TOTAL PROTEIN, SERUM 6.7 g/dL (6.4-8.2)
[2019-12-21 08:35] LABS: GLUCOMETER DEV NAME(LOC) 5S.1; GLUCOSE,POINT OF CARE 397 MG/DL (70-110)
[2019-12-21] MEDS: NIFEdipine 60 MG ER TABLET PO SCH ×2 (08:59→09:00)
[2019-12-21] MEDS: HydrALAZINE HCL 50 MG TABLET PO SCH ×2 (08:59→13:00)
[2019-12-21] MEDS: SEVELAMER CARBONATE 800 MG TABLET PO SCH ×2 (09:00→12:17)
[2019-12-21] MEDS: CARVEDILOL 3.125 MG TABLET PO SCH (09:00)
[2019-12-21] MEDS ORDERED: PANTOPRAZOLE SODIUM 40 MG DR TABLET PO SCH (09:00)
[2019-12-21] MEDS: FERROUS SULFATE 325 MG EC TABLET PO SCH ×2 (09:00→12:17)
[2019-12-21] MEDS: LevETIRAcetam 500 MG TABLET PO SCH (09:00)
[2019-12-21] MEDS: HEPARIN SODIUM,PORCINE 5,000 UNITS/ML VIAL SQ SCH (09:11)
[2019-12-21 12:33] LABS: GLUCOMETER DEV NAME(LOC) 5S.1; GLUCOSE,POINT OF CARE 323 MG/DL (70-110)
[2019-12-21 13:30] VITALS: BP 144/65
[2019-12-21] MEDS ORDERED: HYDR10TA31 PO (13:45)
[2019-12-22 07:34] LABS: GLUCOSE,POINT OF CARE 258 MG/DL (70-110)
== END 2019-12-21 14:05 | disposition home or self-care (01) | DRG 638 ==
LOC: EMS 08:17 → ICU 12:34 → 5S 12:44
PROVIDERS: ADMIT Internal Medicine; ATTEND Internal Medicine
PROC: 5A1D70Z Performance of Urinary Filtration, Intermittent, Less than 6 Hours Per Day (ICD-10-PCS; principal; 2019-12-20)
DX: E11.649 Type 2 diabetes mellitus with hypoglycemia without coma (principal); I12.0 Hypertensive chronic kidney disease with stage 5 chronic kidney disease or end stage renal disease; G92 Toxic encephalopathy; N18.6 End stage renal disease; E87.5 Hyperkalemia; E11.22 Type 2 diabetes mellitus with diabetic chronic kidney disease; E03.9 Hypothyroidism, unspecified; D64.9 Anemia, unspecified; Z99.2 Dependence on renal dialysis; Z83.3 Family history of diabetes mellitus; Z79.899 Other long term (current) drug therapy; Z86.73 Personal history of transient ischemic attack (TIA), and cerebral infarction without residual deficits
CPT/HCPCS: 70450; 83036; 83605; 84100; 84145; 84439; 84443; 86709; 87081; 87340; 93005; 94644; 97161; 99291; J0610; J1644; J7060; J7131

== ENCOUNTER 2020-07-15 08:58 | Emergency (ER) | payer MEDICARE, OTHER ==
[~2020-07-15] VITALS: Ht 147.3 cm; Wt 55.1 kg
[~2020-07-15 08:58] MED LIST changes: +DOCU-275 PO; -DSS100 PO; -HYDR-2924 PO; +HYDR10TA31 PO; -LEVE250T55 PO; +LEVE500T53 PO; +LOSA25TA21 PO; -LOSA25TA71 PO; +PANT-31 PO; -PANT40TA25 PO
[2020-07-15 09:56] LABS: BASOPHILS % (AUTO) 0.8 % (0.0-2.0); EOSINOPHILS % (AUTO) 4.5 % (1.0-6.0); HEMATOCRIT 36.9 % (36-46); HEMOGLOBIN 12.8 g/dL (12.0-16.0); LYMPHOCYTES # (AUTO) 0.7 K/uL (1.0-4.8); LYMPHOCYTES % (AUTO) 17.8 % (22.0-44.0); MEAN CORPUSCULAR HEMOGLOBIN 32.8 pg (26.0-34.0); MEAN CORPUSCULAR HGB CONC 34.6 G/dL (31.0-37.0); MEAN CORPUSCULAR VOLUME 95 fL (80-100); MONOCYTES # (AUTO) 0.4 K/uL (0.1-1.0); MONOCYTES % (AUTO) 9.7 % (2.0-9.0); NEUTROPHILS # (AUTO) 2.5 K/uL (1.8-7.7); NEUTROPHILS % (AUTO) 67.2 % (40.0-70.0); PLATELET COUNT (AUTO) 197 K/uL (150-450); RED BLOOD CELL COUNT(AUTO) 3.89 MIL/uL (4.00-5.20); RED CELL DISTRIBUTION WIDTH 14.6 % (11.5-14.5)
[2020-07-15 10:06] LABS: ANION GAP 5 mmol/L (8-16); CARBON DIOXIDE 31 mmol/L (22-29); CHLORIDE 95 mmol/L (98-107); CREATININE 5.98 mg/dL (0.60-1.30); GLOMERULAR FILTR. RATE CALC 7 mL/min (>60); GLUCOSE,RANDOM 173 mg/dL (70-110); POTASSIUM 4.7 mmol/L (3.5-5.1); SODIUM SERUM 131 mmol/L (136-145); UREA NITROGEN, BLOOD 20 mg/dL (7-18)
[2020-07-15 10:10] LABS: ALANINE AMINOTRANSFERASE 21 U/L (12-78); ALBUMIN 3.3 g/dL (3.4-5.0); ALKALINE PHOSPHATASE 174 U/L (46-116); ASPARTATE AMINOTRANSFERASE 23 U/L (15-37); BILIRUBIN,TOTAL 0.3 mg/dL (0.1-1.0); CREATINE KINASE, TOTAL ONLY 68 U/L (26-192); TOTAL PROTEIN, SERUM 7.9 g/dL (6.4-8.2)
[2020-07-15 11:54] LABS: GLUCOSE,POINT OF CARE 247 MG/DL (70-110)
[2020-07-15 12:26] LABS: GLUCOSE,POINT OF CARE 241 MG/DL (70-110)
[2020-07-15 13:00] LABS: GLUCOSE,POINT OF CARE 230 MG/DL (70-110)
[2020-07-15 14:00] VITALS: BP 153/68
== END 2020-07-15 14:15 | disposition home or self-care (01) ==
LOC: EMS 08:59
DX: E11.649 Type 2 diabetes mellitus with hypoglycemia without coma (principal); I12.0 Hypertensive chronic kidney disease with stage 5 chronic kidney disease or end stage renal disease; E11.22 Type 2 diabetes mellitus with diabetic chronic kidney disease; N18.6 End stage renal disease; Z99.2 Dependence on renal dialysis; Z79.4 Long term (current) use of insulin
CPT/HCPCS: 36415; 71045; 80053; 82550; 82962; 84484; 85025; 93005; 99285; G0480; 82948

== ENCOUNTER 2023-09-01 07:42 | Inpatient (IN) | payer MEDICARE, OTHER ==
[~2023-09-01] VITALS: Ht 152.4 cm; Wt 50.9 kg
[2023-09-01] VITALS (12 sets, daily range): BP systolic 90–145; BP diastolic 55–66; PULSE 76–91; RESP 14–18; TEMP 98–98.6; O2SAT 97–100
[~2023-09-01 07:42] MED LIST changes: +AMLO-257 PO; +ASPI81 PO; -ATOR20TA86 PO; +ATOR40TA71 PO; -CARV3 PO; +CARV6 PO; +CINA30 PO; +CLOP75TA60 PO; -DOCU-275 PO; +FERR-82 PO; -FERR-89 PO; +FOLI-130 PO; -HYDR10TA31 PO; -INSU100V SQ; -LEVE500T53 PO; +LEVE500T8 PO; +LEVO100 PO; -LEVO75TA10 PO; -LOSA25TA21 PO; -NIFE-39 PO; +PYRI-13 PO
[2023-09-01 09:04] LABS: BASOPHILS % (AUTO) 0.4 % (0.0-2.0); EOSINOPHILS % (AUTO) 0.1 % (1.0-6.0); HEMATOCRIT 36.9 % (36-46); HEMOGLOBIN 11.3 g/dL (12.0-16.0); LYMPHOCYTES # (AUTO) 0.6 K/uL (1.0-4.8); LYMPHOCYTES % (AUTO) 7.2 % (22.0-44.0); MEAN CORPUSCULAR HEMOGLOBIN 32.9 pg (26.0-34.0); MEAN CORPUSCULAR HGB CONC 30.6 G/dL (31.0-37.0); MEAN CORPUSCULAR VOLUME 108 fL (80-100); MONOCYTES # (AUTO) 0.3 K/uL (0.1-1.0); MONOCYTES % (AUTO) 3.9 % (2.0-9.0); NEUTROPHILS # (AUTO) 6.9 K/uL (1.8-7.7); PLATELET COUNT (AUTO) 164 K/uL (150-450); RED BLOOD CELL COUNT(AUTO) 3.43 MIL/uL (4.00-5.20); RED CELL DISTRIBUTION WIDTH 17.4 % (11.5-14.5); WHITE BLOOD COUNT (AUTO) 7.8 K/uL (4.5-11.0)
[2023-09-01 09:08] LABS: NEUTROPHILS % (AUTO) 88.4 % (40.0-70.0)
[2023-09-01 09:20] LABS: ALBUMIN 3.3 g/dL (3.4-5.0); BILIRUBIN,TOTAL 0.4 mg/dL (0.1-1.0); CALCIUM, TOTAL 8.1 mg/dL (8.8-10.5); CREATININE 7.19 mg/dL (0.60-1.30); TOTAL PROTEIN, SERUM 8.3 g/dL (6.4-8.2)
[2023-09-01 09:42] LABS: POTASSIUM 7.9 mmol/L (3.5-5.1)
[2023-09-01 09:44] LABS: TROPONIN I-HIGH SENSITIVITY 174 ng/L (<51)
[2023-09-01] MEDS ORDERED: 0.9% SODIUM CHLORIDE 5 ML NEB SOLUTION NEB ONE (09:55)
[2023-09-01] MEDS ORDERED: CALCIUM GLUCONATE 0.465 MEQ/ML 10 ML VIAL ONE (09:58)
[2023-09-01] MEDS ORDERED: ALBUTEROL SULFATE 2.5 MG/0.5 ML NEB SOLUTION NEB ONE (10:00)
[2023-09-01] MEDS ORDERED: DEXTROSE 50%-WATER 25 GM/50 ML SYRINGE IVP ONE ×2 (10:00)
[2023-09-01] MEDS ORDERED: SODIUM BICARBONATE [ADULT] 8.4% 50 MEQ/50 ML SYRINGE IVP ONE (10:00)
[2023-09-01] MEDS ORDERED: CALCIUM GLUCONATE 0.465 MEQ/ML 10 ML VIAL IVP ONE (10:00)
[2023-09-01] MEDS ORDERED: CALCIUM GLUCONATE 1,000 MG in DEXTROSE 5%-WATER 50 ML IV ONE (10:00)
[2023-09-01] MEDS ORDERED: INSULIN REGULAR, HUMAN 100 UNITS/ML IVP ONE ×3 (10:00→14:00)
[2023-09-01 10:12] LABS: RBC MORPHOLOGY COMMENT ABNORMAL RBC MORPH
[2023-09-01 10:14] LABS: ABG BASE EXCESS -11.1 mmol/L (-2.0-3.0); ABG CARBOXYHEMOGLOBIN 0.3 % (0.0-1.5); ABG HCO3 16.5 mmol/L (22.0-26.0); ABG METHEMOGLOBIN 0.2 % (0.0-1.5); ABG OXYGEN CONTENT 17.4 mL/dL (15.0-23.0); ABG OXYGEN SATURATION 99.7 % (95.0-98.0); ABG OXYHEMOGLOBIN 99.2 % (94.0-100.0); ABG PCO2 33 mmHg (35-45); ABG PH 7.293 (7.35-7.450); ABG TOTAL HEMOGLOBIN 11.9 G/dL (12.0-18.0); PO2, ARTERIAL BG 306.5 mmHg (75.0-83.0); SOURCE, BLOOD GAS ARTERIAL; TEMPERATURE, FAHRENHEIT, BG 98.6 FAHREN (96.0-98.6)
[2023-09-01 10:15] LABS: ALLEN TEST, BLOOD GAS Positive; O2 DEVICE,BLOOD GAS AEROSOL MASK (ROOM AIR); SITE, BLOOD GAS RT RADIAL
[2023-09-01] MEDS ORDERED: SODIUM ZIRCONIUM CYCLOSILICATE 5 GM POWDER PACKET PO ONE (10:30)
[2023-09-01 11:34] LABS: COVID AG,FIA SOURCE NASAL SWAB
[2023-09-01] MEDS ORDERED: HEPARIN SODIUM,PORCINE 5,000 UNITS/ML VIAL ONE (11:43)
[2023-09-01] MEDS ORDERED: DEXTROSE 50%-WATER 25 GM/50 ML SYRINGE IVP PRN ×3 (11:45→14:00)
[2023-09-01] MEDS ORDERED: INSULIN REGULAR, HUMAN 100 UNITS in SODIUM CHLORIDE 0.9% 99 ML IV PRN ×4 (11:45→14:00)
[2023-09-01] MEDS ORDERED: DEXTROSE 5%-WATER 1,000 ML IV SCH (11:45)
[2023-09-01 11:57] LABS: INFLUENZA TYPE A NEGATIVE FOR TYPE A (NEGATIVE); INFLUENZA TYPE B NEGATIVE FOR TYPE B (NEGATIVE)
[2023-09-01 11:59] LABS: SARS-COV2 (COVID) ANTIGEN,FIA Negative (Negative)
[2023-09-01 12:42] LABS: CALCIUM, TOTAL 8.5 mg/dL (8.8-10.5); CREATININE 7.74 mg/dL (0.60-1.30); POTASSIUM 5.7 mmol/L (3.5-5.1)
[2023-09-01] MEDS ORDERED: HEPARIN SODIUM,PORCINE 100 UNITS/ML 5 ML VIAL IVP ONE (12:45)
[2023-09-01] MEDS ORDERED: HEPARIN SODIUM,PORCINE 5,000 UNITS/ML VIAL IVP ONE (12:45)
[2023-09-01 12:51] LABS: GLUCOMETER DEV NAME(LOC) ERT.5; GLUCOSE,POINT OF CARE > 600 MG/DL (70-110)
[2023-09-01 12:55] LABS: TROPONIN I-HIGH SENSITIVITY 176 ng/L (<51)
[2023-09-01] MEDS ORDERED: INSULIN LISPRO 100 UNITS/ML SQ PRN (13:45)
[2023-09-01] MEDS: AmLODIPine BESYLATE 5 MG TABLET PO SCH ×2 (13:45→21:00)
[2023-09-01] MEDS ORDERED: SODIUM CHLORIDE 0.9% 1,000 ML IV SCH ×2 (14:00→17:00)
[2023-09-01] MEDS ORDERED: INSULIN REGULAR, HUMAN 100 UNITS/ML IVP PRN (14:00)
[2023-09-01] MEDS ORDERED: SODIUM CHLORIDE 0.45% 1,000 ML IV PRN (14:00)
[2023-09-01] MEDS ORDERED: DEXTROSE 5%-0.45% SODIUM CHL 1,000 ML IV PRN (14:00)
[2023-09-01 15:46] LABS: GLUCOMETER DEV NAME(LOC) PVLAB.39; GLUCOSE,POINT OF CARE > 600 MG/DL (70-110)
[2023-09-01] MEDS: FERROUS SULFATE 325 MG EC TABLET PO SCH (15:52)
[2023-09-01] MEDS: SEVELAMER CARBONATE 800 MG TABLET PO SCH (15:52)
[2023-09-01 18:03] LABS: CALCIUM, TOTAL 8.5 mg/dL (8.8-10.5); CREATININE 8.08 mg/dL (0.60-1.30); POTASSIUM 4.6 mmol/L (3.5-5.1)
[2023-09-01 20:26] LABS: GLUCOSE,POINT OF CARE 436 MG/DL (70-110)
[2023-09-01 20:26] LABS: GLUCOSE,POINT OF CARE 514 MG/DL (70-110)
[2023-09-01 20:26] LABS: GLUCOSE,POINT OF CARE > 600 MG/DL (70-110)
[2023-09-01 20:26] LABS: GLUCOSE,POINT OF CARE 151 MG/DL (70-110)
[2023-09-01] MEDS ORDERED: INSULIN GLARGINE,HUM.REC.ANLOG 100 UNITS/ML SQ ONE (20:30)
[2023-09-01] MEDS ORDERED: INSULIN GLARGINE,HUM.REC.ANLOG 100 UNITS/ML SQ SCH (21:00)
[2023-09-01] MEDS: CARVEDILOL 6.25 MG TABLET PO SCH (21:00)
[2023-09-01 21:21] LABS: GLUCOMETER DEV NAME(LOC) PVLAB.39; GLUCOSE,POINT OF CARE 105 MG/DL (70-110)
[2023-09-01 21:21] LABS: GLUCOMETER DEV NAME(LOC) PVLAB.39; GLUCOSE,POINT OF CARE 294 MG/DL (70-110)
[2023-09-01] MEDS: LevETIRAcetam 500 MG TABLET PO SCH (21:26)
[2023-09-01 21:36] LABS: GLUCOSE,POINT OF CARE 125 MG/DL (70-110)
[2023-09-01 22:16] LABS: CREATININE 3.31 mg/dL (0.60-1.30); POTASSIUM 3.8 mmol/L (3.5-5.1)
[2023-09-02] VITALS: BP 139/70; PULSE 71; RESP 16; TEMP 98.4
[2023-09-02 00:56] LABS: GLUCOSE,POINT OF CARE 105 MG/DL (70-110)
[2023-09-02 04:00] VITALS: BP 121/56; PULSE 73; RESP 17; TEMP 98.8
[2023-09-02 05:16] LABS: GLUCOMETER DEV NAME(LOC) PVLAB.39; GLUCOSE,POINT OF CARE 180 MG/DL (70-110)
[2023-09-02 05:39] LABS: BASOPHILS % (AUTO) 0.4 % (0.0-2.0); HEMATOCRIT 27.8 % (36-46); HEMOGLOBIN 9.5 g/dL (12.0-16.0); LYMPHOCYTES # (AUTO) 0.8 K/uL (1.0-4.8); LYMPHOCYTES % (AUTO) 10.7 % (22.0-44.0); MEAN CORPUSCULAR HEMOGLOBIN 32.9 pg (26.0-34.0); MEAN CORPUSCULAR HGB CONC 34.1 G/dL (31.0-37.0); MEAN CORPUSCULAR VOLUME 97 fL (80-100); MONOCYTES # (AUTO) 0.8 K/uL (0.1-1.0); MONOCYTES % (AUTO) 9.9 % (2.0-9.0); NEUTROPHILS # (AUTO) 6.1 K/uL (1.8-7.7); PLATELET COUNT (AUTO) 150 K/uL (150-450); RED BLOOD CELL COUNT(AUTO) 2.88 MIL/uL (4.00-5.20); RED CELL DISTRIBUTION WIDTH 16.7 % (11.5-14.5); WHITE BLOOD COUNT (AUTO) 7.8 K/uL (4.5-11.0)
[2023-09-02] MEDS: INSULIN LISPRO 100 UNITS/ML SQ PRN ×4 (05:51→20:23)
[2023-09-02 05:52] LABS: CALCIUM, TOTAL 8.3 mg/dL (8.8-10.5); CREATININE 4.67 mg/dL (0.60-1.30); MAGNESIUM 2.2 mg/dL (1.80-2.40); PHOSPHORUS 4.2 mg/dL (2.5-4.9); POTASSIUM 4.7 mmol/L (3.5-5.1)
[2023-09-02 06:06] LABS: GLUCOSE,POINT OF CARE 88 MG/DL (70-110)
[2023-09-02 08:00] VITALS: BP 135/63; PULSE 77; RESP 12; TEMP 98.5
[2023-09-02] MEDS: CARVEDILOL 6.25 MG TABLET PO SCH ×2 (08:15→20:14)
[2023-09-02] MEDS: AmLODIPine BESYLATE 5 MG TABLET PO SCH ×2 (08:15→20:15)
[2023-09-02] MEDS: CINACALCET HCL 30 MG TABLET PO SCH (08:15)
[2023-09-02] MEDS: ASPIRIN 81 MG CHEWABLE TABLET PO SCH ×3 (08:15→13:11)
[2023-09-02] MEDS: LevETIRAcetam 500 MG TABLET PO SCH ×2 (08:16→20:14)
[2023-09-02] MEDS: SEVELAMER CARBONATE 800 MG TABLET PO SCH ×3 (08:16→16:54)
[2023-09-02] MEDS: CLOPIDOGREL BISULFATE 75 MG TABLET PO SCH (08:16)
[2023-09-02] MEDS: ATORVASTATIN CALCIUM 40 MG TABLET PO SCH (08:16)
[2023-09-02] MEDS: FERROUS SULFATE 325 MG EC TABLET PO SCH ×2 (08:16→16:55)
[2023-09-02] MEDS ORDERED: INSULIN GLARGINE,HUM.REC.ANLOG 100 UNITS/ML SQ SCH (09:00)
[2023-09-02] MEDS: DEXTROSE 50%-WATER 25 GM/50 ML SYRINGE IVP PRN (09:34)
[2023-09-02 09:56] LABS: GLUCOMETER DEV NAME(LOC) ERT.5; GLUCOSE,POINT OF CARE > 600 MG/DL (70-110)
[2023-09-02 10:36] LABS: GLUCOMETER DEV NAME(LOC) PVLAB.39; GLUCOSE,POINT OF CARE 157 MG/DL (70-110)
[2023-09-02 10:36] LABS: GLUCOMETER DEV NAME(LOC) PVLAB.39; GLUCOSE,POINT OF CARE 215 MG/DL (70-110)
[2023-09-02 10:36] LABS: GLUCOMETER DEV NAME(LOC) PVLAB.39; GLUCOSE,POINT OF CARE 42 MG/DL (70-110)
[2023-09-02 12:00] VITALS: BP 125/64; PULSE 66; RESP 10; TEMP 98.7
[2023-09-02 12:26] LABS: GLUCOMETER DEV NAME(LOC) PVLAB.39; GLUCOSE,POINT OF CARE 169 MG/DL (70-110)
[2023-09-02 12:26] LABS: GLUCOMETER DEV NAME(LOC) PVLAB.39; GLUCOSE,POINT OF CARE 129 MG/DL (70-110)
[2023-09-02 13:46] LABS: GLUCOSE,POINT OF CARE 140 MG/DL (70-110)
[2023-09-02] MEDS ORDERED: HEPARIN SODIUM,PORCINE 1,000 UNITS/ML VIAL IVP ONE (14:25)
[2023-09-02 16:00] VITALS: BP 125/61; PULSE 68; RESP 17; TEMP 98.7
[2023-09-02 17:36] LABS: GLUCOMETER DEV NAME(LOC) PVLAB.39; GLUCOSE,POINT OF CARE 121 MG/DL (70-110)
[2023-09-02 20:00] VITALS: BP 120/54; PULSE 71; RESP 20; TEMP 98.4
[2023-09-02 21:36] LABS: GLUCOMETER DEV NAME(LOC) PVLAB.39; GLUCOSE,POINT OF CARE 296 MG/DL (70-110)
[2023-09-02 21:36] LABS: GLUCOSE,POINT OF CARE 258 MG/DL (70-110)
[2023-09-03] VITALS (13 sets, daily range): BP systolic 90–159; BP diastolic 43–71; PULSE 62–91; RESP 12–20; TEMP 98–98.5
[2023-09-03] MEDS: INSULIN LISPRO 100 UNITS/ML SQ PRN ×4 (00:34→18:42)
[2023-09-03 00:56] LABS: GLUCOMETER DEV NAME(LOC) PVLAB.39; GLUCOSE,POINT OF CARE 205 MG/DL (70-110)
[2023-09-03] MEDS: DEXTROSE 50%-WATER 25 GM/50 ML SYRINGE IVP PRN (03:21)
[2023-09-03 03:56] LABS: GLUCOSE,POINT OF CARE 62 MG/DL (70-110)
[2023-09-03 05:05] LABS: BASOPHILS % (AUTO) 0.7 % (0.0-2.0); EOSINOPHILS % (AUTO) 1.7 % (1.0-6.0); HEMATOCRIT 26.5 % (36-46); HEMOGLOBIN 8.9 g/dL (12.0-16.0); LYMPHOCYTES % (AUTO) 13.4 % (22.0-44.0); MEAN CORPUSCULAR HEMOGLOBIN 32.7 pg (26.0-34.0); MEAN CORPUSCULAR HGB CONC 33.8 G/dL (31.0-37.0); MEAN CORPUSCULAR VOLUME 97 fL (80-100); MONOCYTES # (AUTO) 0.7 K/uL (0.1-1.0); MONOCYTES % (AUTO) 8.5 % (2.0-9.0); NEUTROPHILS # (AUTO) 5.9 K/uL (1.8-7.7); NEUTROPHILS % (AUTO) 75.7 % (40.0-70.0); PLATELET COUNT (AUTO) 141 K/uL (150-450); RED BLOOD CELL COUNT(AUTO) 2.73 MIL/uL (4.00-5.20); WHITE BLOOD COUNT (AUTO) 7.8 K/uL (4.5-11.0)
[2023-09-03 05:15] LABS: CALCIUM, TOTAL 8.1 mg/dL (8.8-10.5); CREATININE 6.65 mg/dL (0.60-1.30); POTASSIUM 4.8 mmol/L (3.5-5.1)
[2023-09-03 05:57] LABS: GLUCOMETER DEV NAME(LOC) PVLAB.39; GLUCOSE,POINT OF CARE 120 MG/DL (70-110)
[2023-09-03 06:26] LABS: GLUCOMETER DEV NAME(LOC) PVLAB.39; GLUCOSE,POINT OF CARE 101 MG/DL (70-110)
[2023-09-03] MEDS: CARVEDILOL 6.25 MG TABLET PO SCH ×2 (07:38→21:41)
[2023-09-03] MEDS: LevETIRAcetam 500 MG TABLET PO SCH ×2 (07:38→21:41)
[2023-09-03] MEDS: AmLODIPine BESYLATE 5 MG TABLET PO SCH ×2 (07:39→21:41)
[2023-09-03 07:50] LABS: GLUCOSE,POINT OF CARE 174 MG/DL (70-110)
[2023-09-03] MEDS: SEVELAMER CARBONATE 800 MG TABLET PO SCH ×3 (08:00→18:24)
[2023-09-03] MEDS: FERROUS SULFATE 325 MG EC TABLET PO SCH ×2 (08:00→17:30)
[2023-09-03] MEDS: CINACALCET HCL 30 MG TABLET PO SCH (08:00)
[2023-09-03] MEDS: ASPIRIN 81 MG CHEWABLE TABLET PO SCH (08:36)
[2023-09-03] MEDS: ATORVASTATIN CALCIUM 40 MG TABLET PO SCH (08:37)
[2023-09-03] MEDS: CLOPIDOGREL BISULFATE 75 MG TABLET PO SCH (08:37)
[2023-09-03 10:36] LABS: GLUCOMETER DEV NAME(LOC) PVLAB.39; GLUCOSE,POINT OF CARE 239 MG/DL (70-110)
[2023-09-03 15:50] LABS: BASOPHILS % (AUTO) 0.5 % (0.0-2.0); EOSINOPHILS % (AUTO) 1.4 % (1.0-6.0); HEMOGLOBIN 8.5 g/dL (12.0-16.0); LYMPHOCYTES # (AUTO) 1.2 K/uL (1.0-4.8); LYMPHOCYTES % (AUTO) 14.6 % (22.0-44.0); MEAN CORPUSCULAR HGB CONC 32.6 G/dL (31.0-37.0); MEAN CORPUSCULAR VOLUME 98 fL (80-100); MONOCYTES # (AUTO) 0.6 K/uL (0.1-1.0); MONOCYTES % (AUTO) 7.9 % (2.0-9.0); NEUTROPHILS % (AUTO) 75.6 % (40.0-70.0); PLATELET COUNT (AUTO) 135 K/uL (150-450); RED BLOOD CELL COUNT(AUTO) 2.65 MIL/uL (4.00-5.20); RED CELL DISTRIBUTION WIDTH 16.7 % (11.5-14.5); WHITE BLOOD COUNT (AUTO) 7.9 K/uL (4.5-11.0)
[2023-09-03 19:31] LABS: GLUCOMETER DEV NAME(LOC) PVLAB.39; GLUCOSE,POINT OF CARE 351 MG/DL (70-110)
[2023-09-03 19:31] LABS: GLUCOMETER DEV NAME(LOC) PVLAB.39; GLUCOSE,POINT OF CARE 153 MG/DL (70-110)
[2023-09-03 19:31] LABS: GLUCOSE,POINT OF CARE 439 MG/DL (70-110)
[2023-09-04] VITALS: BP 132/45; PULSE 74; RESP 16; TEMP 97.9
[2023-09-04] MEDS: INSULIN LISPRO 100 UNITS/ML SQ PRN ×7 (00:15→21:17)
[2023-09-04 00:26] LABS: GLUCOSE,POINT OF CARE 317 MG/DL (70-110)
[2023-09-04 03:21] LABS: GLUCOSE,POINT OF CARE 182 MG/DL (70-110)
[2023-09-04 04:00] VITALS: BP 133/47; PULSE 66; RESP 16; TEMP 97.8
[2023-09-04 05:16] LABS: GLUCOSE,POINT OF CARE 227 MG/DL (70-110)
[2023-09-04 05:29] LABS: HEMATOCRIT 24.8 % (36-46); HEMOGLOBIN 8.4 g/dL (12.0-16.0); LYMPHOCYTES # (AUTO) 0.6 K/uL (1.0-4.8); LYMPHOCYTES % (AUTO) 10.7 % (22.0-44.0); MEAN CORPUSCULAR HGB CONC 33.9 G/dL (31.0-37.0); MEAN CORPUSCULAR VOLUME 97 fL (80-100); MONOCYTES # (AUTO) 0.5 K/uL (0.1-1.0); MONOCYTES % (AUTO) 8.5 % (2.0-9.0); NEUTROPHILS # (AUTO) 4.3 K/uL (1.8-7.7); NEUTROPHILS % (AUTO) 77.8 % (40.0-70.0); PLATELET COUNT (AUTO) 126 K/uL (150-450); RED BLOOD CELL COUNT(AUTO) 2.55 MIL/uL (4.00-5.20); RED CELL DISTRIBUTION WIDTH 16.4 % (11.5-14.5); WHITE BLOOD COUNT (AUTO) 5.6 K/uL (4.5-11.0)
[2023-09-04 05:53] LABS: CALCIUM, TOTAL 8.1 mg/dL (8.8-10.5); CREATININE 3.86 mg/dL (0.60-1.30); POTASSIUM 4.9 mmol/L (3.5-5.1)
[2023-09-04 06:31] LABS: GLUCOMETER DEV NAME(LOC) PVLAB.39; GLUCOSE,POINT OF CARE 154 MG/DL (70-110)
[2023-09-04 08:00] VITALS: BP 117/48; PULSE 65; RESP 18; TEMP 98
[2023-09-04] MEDS: CLOPIDOGREL BISULFATE 75 MG TABLET PO SCH (09:04)
[2023-09-04] MEDS: ATORVASTATIN CALCIUM 40 MG TABLET PO SCH (09:04)
[2023-09-04] MEDS: CINACALCET HCL 30 MG TABLET PO SCH (09:04)
[2023-09-04] MEDS: CARVEDILOL 6.25 MG TABLET PO SCH ×2 (09:04→20:02)
[2023-09-04] MEDS: FERROUS SULFATE 325 MG EC TABLET PO SCH ×2 (09:05→17:29)
[2023-09-04] MEDS: AmLODIPine BESYLATE 5 MG TABLET PO SCH ×2 (09:05→20:02)
[2023-09-04] MEDS: LevETIRAcetam 500 MG TABLET PO SCH ×2 (09:05→20:02)
[2023-09-04] MEDS: SEVELAMER CARBONATE 800 MG TABLET PO SCH ×3 (09:05→17:29)
[2023-09-04] MEDS: ASPIRIN 81 MG CHEWABLE TABLET PO SCH (09:05)
[2023-09-04 10:06] LABS: GLUCOMETER DEV NAME(LOC) PVLAB.39; GLUCOSE,POINT OF CARE 310 MG/DL (70-110)
[2023-09-04 12:00] VITALS: BP 111/46; PULSE 75; RESP 19; TEMP 97.9
[2023-09-04 16:00] VITALS: BP 110/51; PULSE 68; RESP 18; TEMP 98
[2023-09-04 17:26] LABS: GLUCOMETER DEV NAME(LOC) PVLAB.39; GLUCOSE,POINT OF CARE 340 MG/DL (70-110)
[2023-09-04 17:56] LABS: GLUCOMETER DEV NAME(LOC) PVLAB.39; GLUCOSE,POINT OF CARE 201 MG/DL (70-110)
[2023-09-04 18:36] LABS: GLUCOSE,POINT OF CARE 303 MG/DL (70-110)
[2023-09-04 20:00] VITALS: BP 115/50; PULSE 65; RESP 20; TEMP 98.4
[2023-09-04 21:26] LABS: GLUCOSE,POINT OF CARE 206 MG/DL (70-110)
[2023-09-05] VITALS (15 sets, daily range): BP systolic 97–129; BP diastolic 41–62; PULSE 58–77; RESP 12–24; TEMP 97.1–98.3
[2023-09-05 00:21] LABS: GLUCOSE,POINT OF CARE 123 MG/DL (70-110)
[2023-09-05] MEDS: INSULIN LISPRO 100 UNITS/ML SQ PRN ×7 (03:09→23:58)
[2023-09-05 03:46] LABS: GLUCOSE,POINT OF CARE 381 MG/DL (70-110)
[2023-09-05 05:53] LABS: BASOPHILS % (AUTO) 0.9 % (0.0-2.0); EOSINOPHILS % (AUTO) 2.6 % (1.0-6.0); HEMATOCRIT 23.6 % (36-46); LYMPHOCYTES # (AUTO) 1.1 K/uL (1.0-4.8); LYMPHOCYTES % (AUTO) 16.8 % (22.0-44.0); MEAN CORPUSCULAR HEMOGLOBIN 33.2 pg (26.0-34.0); MEAN CORPUSCULAR HGB CONC 33.9 G/dL (31.0-37.0); MEAN CORPUSCULAR VOLUME 98 fL (80-100); MONOCYTES # (AUTO) 0.6 K/uL (0.1-1.0); NEUTROPHILS # (AUTO) 4.4 K/uL (1.8-7.7); NEUTROPHILS % (AUTO) 70.7 % (40.0-70.0); PLATELET COUNT (AUTO) 138 K/uL (150-450); RED BLOOD CELL COUNT(AUTO) 2.41 MIL/uL (4.00-5.20); WHITE BLOOD COUNT (AUTO) 6.3 K/uL (4.5-11.0)
[2023-09-05 06:00] LABS: CALCIUM, TOTAL 8.3 mg/dL (8.8-10.5); CREATININE 5.98 mg/dL (0.60-1.30); POTASSIUM 4.4 mmol/L (3.5-5.1)
[2023-09-05 06:22] LABS: GLUCOMETER DEV NAME(LOC) PVLAB.39; GLUCOSE,POINT OF CARE 162 MG/DL (70-110)
[2023-09-05] MEDS: CINACALCET HCL 30 MG TABLET PO SCH (08:44)
[2023-09-05] MEDS: LevETIRAcetam 500 MG TABLET PO SCH ×2 (08:44→20:25)
[2023-09-05] MEDS: FERROUS SULFATE 325 MG EC TABLET PO SCH (08:45)
[2023-09-05] MEDS: ATORVASTATIN CALCIUM 40 MG TABLET PO SCH (08:45)
[2023-09-05] MEDS: CLOPIDOGREL BISULFATE 75 MG TABLET PO SCH (08:45)
[2023-09-05] MEDS: ASPIRIN 81 MG CHEWABLE TABLET PO SCH (08:45)
[2023-09-05] MEDS: SEVELAMER CARBONATE 800 MG TABLET PO SCH ×3 (08:45→18:16)
[2023-09-05] MEDS: CARVEDILOL 6.25 MG TABLET PO SCH ×2 (08:46→20:25)
[2023-09-05] MEDS: AmLODIPine BESYLATE 5 MG TABLET PO SCH ×2 (08:46→20:25)
[2023-09-05] MEDS ORDERED: SODIUM CHLORIDE 0.9% 2,000 ML ONE (09:35)
[2023-09-05 12:46] LABS: GLUCOSE,POINT OF CARE 84 MG/DL (70-110)
[2023-09-05 21:30] LABS: GLUCOMETER DEV NAME(LOC) PVLAB.39; GLUCOSE,POINT OF CARE 284 MG/DL (70-110)
[2023-09-06] VITALS: BP 129/56; PULSE 65; RESP 19; TEMP 98.5
[2023-09-06 00:06] LABS: GLUCOMETER DEV NAME(LOC) PVLAB.39; GLUCOSE,POINT OF CARE 228 MG/DL (70-110)
[2023-09-06 03:27] LABS: GLUCOMETER DEV NAME(LOC) PVLAB.39; GLUCOSE,POINT OF CARE 129 MG/DL (70-110)
[2023-09-06 04:00] VITALS: BP 121/60; PULSE 59; RESP 20; TEMP 97.9
[2023-09-06] MEDS: INSULIN LISPRO 100 UNITS/ML SQ PRN ×4 (06:08→21:25)
[2023-09-06 06:21] LABS: GLUCOMETER DEV NAME(LOC) PVLAB.39; GLUCOSE,POINT OF CARE 286 MG/DL (70-110)
[2023-09-06] MEDS: ATORVASTATIN CALCIUM 40 MG TABLET PO SCH (08:26)
[2023-09-06] MEDS: LevETIRAcetam 500 MG TABLET PO SCH ×2 (08:26→21:18)
[2023-09-06] MEDS: SEVELAMER CARBONATE 800 MG TABLET PO SCH ×3 (08:26→17:46)
[2023-09-06] MEDS: CARVEDILOL 6.25 MG TABLET PO SCH ×2 (08:26→21:18)
[2023-09-06] MEDS: ASPIRIN 81 MG CHEWABLE TABLET PO SCH (08:26)
[2023-09-06] MEDS: CLOPIDOGREL BISULFATE 75 MG TABLET PO SCH (08:27)
[2023-09-06] MEDS: CINACALCET HCL 30 MG TABLET PO SCH (08:30)
[2023-09-06] MEDS: AmLODIPine BESYLATE 5 MG TABLET PO SCH ×2 (08:30→21:18)
[2023-09-06 10:08] VITALS: BP 103/44; PULSE 61; RESP 19; TEMP 97.9
[2023-09-06 12:31] LABS: GLUCOSE,POINT OF CARE 176 MG/DL (70-110)
[2023-09-06 18:02] LABS: GLUCOMETER DEV NAME(LOC) 5N.2C; GLUCOSE,POINT OF CARE > 600 MG/DL (70-110)
[2023-09-06 19:47] LABS: BASOPHILS % (AUTO) 1.4 % (0.0-2.0); EOSINOPHILS % (AUTO) 2.7 % (1.0-6.0); HEMATOCRIT 29.1 % (36-46); HEMOGLOBIN 9.5 g/dL (12.0-16.0); LYMPHOCYTES % (AUTO) 17.1 % (22.0-44.0); MEAN CORPUSCULAR HEMOGLOBIN 32.8 pg (26.0-34.0); MEAN CORPUSCULAR HGB CONC 32.7 G/dL (31.0-37.0); MEAN CORPUSCULAR VOLUME 100 fL (80-100); MONOCYTES # (AUTO) 0.6 K/uL (0.1-1.0); MONOCYTES % (AUTO) 9.9 % (2.0-9.0); NEUTROPHILS # (AUTO) 3.8 K/uL (1.8-7.7); NEUTROPHILS % (AUTO) 68.9 % (40.0-70.0); PLATELET COUNT (AUTO) 206 K/uL (150-450); RED CELL DISTRIBUTION WIDTH 16.3 % (11.5-14.5); WHITE BLOOD COUNT (AUTO) 5.6 K/uL (4.5-11.0)
[2023-09-06 19:56] LABS: GLUCOMETER DEV NAME(LOC) 5S.1B; GLUCOSE,POINT OF CARE 242 MG/DL (70-110)
[2023-09-06 20:00] LABS: CALCIUM, TOTAL 7.8 mg/dL (8.8-10.5); CREATININE 5.35 mg/dL (0.60-1.30); MAGNESIUM 2.4 mg/dL (1.80-2.40); PHOSPHORUS 4.9 mg/dL (2.5-4.9)
[2023-09-06 20:02] VITALS: BP 143/64; PULSE 70; RESP 18; TEMP 97.7
[2023-09-06 20:12] LABS: POTASSIUM 6.3 mmol/L (3.5-5.1)
[2023-09-06] MEDS ORDERED: ALBUTEROL SULFATE 2.5 MG/0.5 ML NEB SOLUTION NEB ONE (20:30)
[2023-09-06] MEDS ORDERED: SODIUM ZIRCONIUM CYCLOSILICATE 5 GM POWDER PACKET PO ONE (20:30)
[2023-09-06] MEDS: INSULIN NPH, HUMAN ISOPHANE 100 UNITS/ML SQ SCH ×3 (21:00→21:23)
[2023-09-07] VITALS (16 sets, daily range): BP systolic 113–151; BP diastolic 50–63; PULSE 59–71; RESP 16–18; TEMP 97.6–98.2
[2023-09-07] MEDS ORDERED: INSULIN LISPRO 100 UNITS/ML SQ ONE (00:15)
[2023-09-07] MEDS: INSULIN LISPRO 100 UNITS/ML SQ PRN ×5 (04:13→20:55)
[2023-09-07 08:11] LABS: GLUCOMETER DEV NAME(LOC) 5N.2C; GLUCOSE,POINT OF CARE > 600 MG/DL (70-110)
[2023-09-07 08:11] LABS: GLUCOMETER DEV NAME(LOC) 5N.2C; GLUCOSE,POINT OF CARE > 600 MG/DL (70-110)
[2023-09-07 08:11] LABS: GLUCOMETER DEV NAME(LOC) 5N.2C; GLUCOSE,POINT OF CARE 254 MG/DL (70-110)
[2023-09-07] MEDS: SEVELAMER CARBONATE 800 MG TABLET PO SCH ×3 (08:16→18:26)
[2023-09-07] MEDS: ASPIRIN 81 MG CHEWABLE TABLET PO SCH (08:18)
[2023-09-07] MEDS: AmLODIPine BESYLATE 5 MG TABLET PO SCH ×2 (08:18→20:55)
[2023-09-07] MEDS: ATORVASTATIN CALCIUM 40 MG TABLET PO SCH (08:19)
[2023-09-07] MEDS: CLOPIDOGREL BISULFATE 75 MG TABLET PO SCH (08:19)
[2023-09-07] MEDS: LevETIRAcetam 500 MG TABLET PO SCH ×2 (08:19→20:55)
[2023-09-07] MEDS: CARVEDILOL 6.25 MG TABLET PO SCH ×2 (08:19→20:55)
[2023-09-07] MEDS: CINACALCET HCL 30 MG TABLET PO SCH (08:19)
[2023-09-07] MEDS ORDERED: EPOETIN ALFA 10,000 UNITS/ML VIAL SQ SCH (09:00)
[2023-09-07] MEDS: INSULIN NPH, HUMAN ISOPHANE 100 UNITS/ML SQ SCH ×2 (09:26→20:57)
[2023-09-07 09:46] LABS: GLUCOMETER DEV NAME(LOC) 5S.1B; GLUCOSE,POINT OF CARE 173 MG/DL (70-110)
[2023-09-07 12:26] LABS: GLUCOMETER DEV NAME(LOC) 5N.2C; GLUCOSE,POINT OF CARE 146 MG/DL (70-110)
[2023-09-07] MEDS ORDERED: SODIUM CHLORIDE 0.9% 1,000 ML ONE (12:43)
[2023-09-07 14:18] LABS: CREATININE 3.56 mg/dL (0.60-1.30); POTASSIUM 3.3 mmol/L (3.5-5.1)
[2023-09-07 18:31] LABS: GLUCOMETER DEV NAME(LOC) 5N.2C; GLUCOSE,POINT OF CARE 208 MG/DL (70-110)
[2023-09-07 21:56] LABS: GLUCOMETER DEV NAME(LOC) 5N.2C; GLUCOSE,POINT OF CARE 233 MG/DL (70-110)
[2023-09-08] VITALS: BP 139/56; PULSE 66; RESP 18; TEMP 98.4
[2023-09-08 04:00] VITALS: BP 125/54; PULSE 69; RESP 18; TEMP 98
[2023-09-08] MEDS: INSULIN LISPRO 100 UNITS/ML SQ PRN ×3 (06:07→17:51)
[2023-09-08 07:53] VITALS: BP 131/59; PULSE 82; RESP 18; TEMP 98
[2023-09-08] MEDS: CINACALCET HCL 30 MG TABLET PO SCH (08:10)
[2023-09-08] MEDS: CARVEDILOL 6.25 MG TABLET PO SCH (08:11)
[2023-09-08] MEDS: SEVELAMER CARBONATE 800 MG TABLET PO SCH ×3 (08:11→17:48)
[2023-09-08] MEDS: ASPIRIN 81 MG CHEWABLE TABLET PO SCH (08:11)
[2023-09-08] MEDS: LevETIRAcetam 500 MG TABLET PO SCH (08:12)
[2023-09-08] MEDS: ATORVASTATIN CALCIUM 40 MG TABLET PO SCH (08:12)
[2023-09-08] MEDS: CLOPIDOGREL BISULFATE 75 MG TABLET PO SCH (08:12)
[2023-09-08] MEDS: AmLODIPine BESYLATE 5 MG TABLET PO SCH (08:16)
[2023-09-08] MEDS: INSULIN NPH, HUMAN ISOPHANE 100 UNITS/ML SQ SCH (08:18)
[2023-09-08 11:21] VITALS: BP 121/48; PULSE 86; RESP 18; TEMP 98.2
[2023-09-08 11:30] LABS: GLUCOMETER DEV NAME(LOC) 5S.1B; GLUCOSE,POINT OF CARE 97 MG/DL (70-110)
[2023-09-08 11:31] LABS: GLUCOMETER DEV NAME(LOC) 5S.1B; GLUCOSE,POINT OF CARE 265 MG/DL (70-110)
[2023-09-08 18:12] VITALS: BP 124/52; PULSE 82; RESP 18; TEMP 98
[2023-09-08 21:16] LABS: GLUCOMETER DEV NAME(LOC) 5N.1C; GLUCOSE,POINT OF CARE 191 MG/DL (70-110)
[2023-09-10] MEDS ORDERED: INSNPH SQ (18:37)
[2023-09-10] MEDS ORDERED: BISA10SU11 PR (18:37)
[2023-09-10] MEDS ORDERED: LEVO50 PO (18:37)
[2023-09-10] MEDS ORDERED: ACET-2247 PO ×2 (18:37)
== END 2023-09-08 19:30 | DRG 314 ==
LOC: EMS 07:45 → ICU 12:40 → 5S 09-06 09:15
PROVIDERS: ADMIT Internal Medicine; ATTEND Internal Medicine
PROC: 06HY33Z Insertion of Infusion Device into Lower Vein, Percutaneous Approach (ICD-10-PCS; principal; 2023-09-01)
PROC: B54BZZA Ultrasonography of Right Lower Extremity Veins, Guidance (ICD-10-PCS; 2023-09-01)
PROC: 5A1D70Z Performance of Urinary Filtration, Intermittent, Less than 6 Hours Per Day (ICD-10-PCS; 2023-09-01)
PROC: 5A1D70Z Performance of Urinary Filtration, Intermittent, Less than 6 Hours Per Day (ICD-10-PCS; 2023-09-03)
PROC: 5A1D70Z Performance of Urinary Filtration, Intermittent, Less than 6 Hours Per Day (ICD-10-PCS; 2023-09-05)
PROC: 5A1D70Z Performance of Urinary Filtration, Intermittent, Less than 6 Hours Per Day (ICD-10-PCS; 2023-09-07)
DX: T82.898A Other specified complication of vascular prosthetic devices, implants and grafts, initial encounter (principal); E11.10 Type 2 diabetes mellitus with ketoacidosis without coma; G93.41 Metabolic encephalopathy; N18.6 End stage renal disease; I13.2 Hypertensive heart and chronic kidney disease with heart failure and with stage 5 chronic kidney disease, or end stage renal disease; E11.649 Type 2 diabetes mellitus with hypoglycemia without coma; E87.5 Hyperkalemia; I50.9 Heart failure, unspecified; Z20.822 Contact with and (suspected) exposure to COVID-19; I25.10 Atherosclerotic heart disease of native coronary artery without angina pectoris; E11.319 Type 2 diabetes mellitus with unspecified diabetic retinopathy without macular edema; G40.909 Epilepsy, unspecified, not intractable, without status epilepticus; E11.22 Type 2 diabetes mellitus with diabetic chronic kidney disease; D63.1 Anemia in chronic kidney disease; Y83.8 Other surgical procedures as the cause of abnormal reaction of the patient, or of later complication, without mention of misadventure at the time of the procedure; Z99.2 Dependence on renal dialysis; Z79.4 Long term (current) use of insulin; Z79.899 Other long term (current) drug therapy; Z95.5 Presence of coronary angioplasty implant and graft; Y92.89 Other specified places as the place of occurrence of the external cause
CPT/HCPCS: 36600; 71045; 80048; 80053; 82805; 82948; 82962; 83735; 83880; 84100; 84484; 85025; 87081; 87804; 90935; 93005; 94640; 97116; 97163; 97530; 97535; 99291; J0610; J0885; J1642; J1644; J1815; J3490; J7030; J7050; J7060; Q9967; 36415-L1; 36415-TC; J7613

== ENCOUNTER 2023-11-19 03:40 | Inpatient (IN) | payer MEDICARE, OTHER ==
[~2023-11-19] VITALS: Ht 149.9 cm; Wt 51.9 kg
[2023-11-19] VITALS (14 sets, daily range): BP systolic 98–186; BP diastolic 53–83; PULSE 64–91; RESP 15–18; TEMP 94.1–98.7
[~2023-11-19 03:40] MED LIST changes: +ACET-2247 PO; +BISA10SU11 PR; +INSNPH SQ; +LEVO50 PO
[2023-11-19] MEDS ORDERED: CALCIUM CHLORIDE 100 MG/ML 10 ML SYRINGE IVP ONE (04:30)
[2023-11-19] MEDS ORDERED: SODIUM CHLORIDE 0.9% 1,900 ML IV ONE (04:30)
[2023-11-19] MEDS ORDERED: 0.9% SODIUM CHLORIDE 10 ML SYRINGE IVP PRN ×2 (04:30→09:45)
[2023-11-19] MEDS ORDERED: INSULIN REGULAR, HUMAN 100 UNITS/ML IVP ONE (04:45)
[2023-11-19 04:51] LABS: GLUCOMETER DEV NAME(LOC) ERT.5; GLUCOSE,POINT OF CARE 540 MG/DL (70-110)
[2023-11-19] MEDS ORDERED: CALCIUM GLUCONATE 100 MG/ML 10 ML IVP ONE (05:00)
[2023-11-19] MEDS ORDERED: SODIUM ZIRCONIUM CYCLOSILICATE 5 GM POWDER PACKET PO ONE (05:00)
[2023-11-19 05:06] LABS: BASOPHILS % (AUTO) 0.4 % (0.0-2.0); EOSINOPHILS % (AUTO) 1.1 % (1.0-6.0); HEMATOCRIT 37.9 % (36-46); HEMOGLOBIN 12.3 g/dL (12.0-16.0); LYMPHOCYTES % (AUTO) 21.2 % (22.0-44.0); MEAN CORPUSCULAR HEMOGLOBIN 33.1 pg (26.0-34.0); MEAN CORPUSCULAR HGB CONC 32.5 G/dL (31.0-37.0); MEAN CORPUSCULAR VOLUME 102 fL (80-100); MONOCYTES # (AUTO) 0.2 K/uL (0.1-1.0); MONOCYTES % (AUTO) 2.1 % (2.0-9.0); NEUTROPHILS # (AUTO) 6.9 K/uL (1.8-7.7); NEUTROPHILS % (AUTO) 75.2 % (40.0-70.0); PLATELET COUNT (AUTO) 231 K/uL (150-450); RED BLOOD CELL COUNT(AUTO) 3.72 MIL/uL (4.00-5.20); RED CELL DISTRIBUTION WIDTH 14.8 % (11.5-14.5); WHITE BLOOD COUNT (AUTO) 9.2 K/uL (4.5-11.0)
[2023-11-19 05:16] LABS: COVID AG,FIA SOURCE NASAL SWAB
[2023-11-19 05:18] LABS: PROTHROMBIN TIME 10.3 SEC (9.4-11.6)
[2023-11-19 05:24] LABS: B-TYPE NATRIURETIC PEPTIDE 1110 pg/mL (0-100)
[2023-11-19 05:27] LABS: ALANINE AMINOTRANSFERASE 39 U/L (12-78); ALBUMIN 3.2 g/dL (3.4-5.0); ALKALINE PHOSPHATASE 96 U/L (46-116); ANION GAP 16 mmol/L (8-16); ASPARTATE AMINOTRANSFERASE 58 U/L (15-37); BILIRUBIN,TOTAL 0.3 mg/dL (0.1-1.0); CALCIUM, TOTAL 9.4 mg/dL (8.8-10.5); CARBON DIOXIDE 22 mmol/L (22-29); CHLORIDE 92 mmol/L (98-107); CREATININE 7.88 mg/dL (0.60-1.30); GLOMERULAR FILTR. RATE CALC 5 mL/min (>60); SODIUM SERUM 130 mmol/L (136-145); TOTAL PROTEIN, SERUM 7.7 g/dL (6.4-8.2); UREA NITROGEN, BLOOD 74 mg/dL (7-18)
[2023-11-19 05:30] LABS: TROPONIN I-HIGH SENSITIVITY 50 ng/L (<51)
[2023-11-19 05:32] LABS: GLUCOSE,RANDOM 599 mg/dL (70-110); LACTIC ACID 2.1 mmol/L (0.4-2.0); POTASSIUM 8.1 mmol/L (3.5-5.1)
[2023-11-19 05:40] LABS: INFLUENZA TYPE A NEGATIVE FOR TYPE A (NEGATIVE); INFLUENZA TYPE B NEGATIVE FOR TYPE B (NEGATIVE); SARS-COV2 (COVID) ANTIGEN,FIA Negative (Negative)
[2023-11-19 06:17] LABS: GLUCOMETER DEV NAME(LOC) ER.6; GLUCOSE,POINT OF CARE > 600 MG/DL (70-110)
[2023-11-19 06:17] LABS: GLUCOMETER DEV NAME(LOC) ER.6; GLUCOSE,POINT OF CARE 461 MG/DL (70-110)
[2023-11-19] MEDS ORDERED: INSULIN LISPRO 100 UNITS/ML SQ PRN (08:30)
[2023-11-19] MEDS ORDERED: ACETAMINOPHEN 325 MG TABLET PO PRN (09:45)
[2023-11-19] MEDS ORDERED: MAGNESIUM HYDROXIDE SUSPENSION 30 ML UDCUP PO PRN (09:45)
[2023-11-19] MEDS ORDERED: EMPAGLIFLOZIN 10 MG TABLET PO SCH (09:45)
[2023-11-19] MEDS ORDERED: OxyCODONE HCL/ACETAMINOPHEN 5-325 MG TABLET PO PRN ×2 (09:45)
[2023-11-19] MEDS ORDERED: ONDANSETRON HCL 4 MG/2 ML VIAL IVP PRN (09:45)
[2023-11-19] MEDS: ASPIRIN 81 MG CHEWABLE TABLET PO SCH (10:41)
[2023-11-19] MEDS: DOCUSATE SODIUM 100 MG CAPSULE PO SCH ×2 (10:41→21:40)
[2023-11-19] MEDS: ATORVASTATIN CALCIUM 40 MG TABLET PO SCH (10:41)
[2023-11-19] MEDS: PANTOPRAZOLE SODIUM 40 MG/VIAL IVP SCH (10:41)
[2023-11-19] MEDS: AmLODIPine BESYLATE 5 MG TABLET PO SCH ×2 (10:42→21:40)
[2023-11-19] MEDS: CLOPIDOGREL BISULFATE 75 MG TABLET PO SCH (10:42)
[2023-11-19] MEDS: LevETIRAcetam 500 MG TABLET PO SCH ×2 (10:42→21:40)
[2023-11-19] MEDS: FOLIC ACID 1 MG TABLET PO SCH (10:42)
[2023-11-19] MEDS: LEVOTHYROXINE SODIUM 50 MCG TABLET PO SCH (10:50)
[2023-11-19] MEDS: CARVEDILOL 6.25 MG TABLET PO SCH ×2 (10:50→21:40)
[2023-11-19] MEDS: CINACALCET HCL 30 MG TABLET PO SCH (10:50)
[2023-11-19 10:57] LABS: CALCIUM, TOTAL 9.9 mg/dL (8.8-10.5); CREATININE 7.95 mg/dL (0.60-1.30)
[2023-11-19 11:00] LABS: POTASSIUM 7.2 mmol/L (3.5-5.1)
[2023-11-19 12:01] LABS: GLUCOMETER DEV NAME(LOC) ICUN.5; GLUCOSE,POINT OF CARE 293 MG/DL (70-110)
[2023-11-19] MEDS: SEVELAMER CARBONATE 800 MG TABLET PO SCH ×2 (12:18→17:30)
[2023-11-19] MEDS: DEXTROSE 50%-WATER 25 GM/50 ML SYRINGE IVP PRN ×2 (17:00→17:08)
[2023-11-19 17:11] LABS: GLUCOMETER DEV NAME(LOC) ICUN.5; GLUCOSE,POINT OF CARE 474 MG/DL (70-110)
[2023-11-19] MEDS: FERROUS SULFATE 325 MG EC TABLET PO SCH (17:30)
[2023-11-19 17:56] LABS: GLUCOSE,POINT OF CARE 12 MG/DL (70-110)
[2023-11-19 17:56] LABS: GLUCOSE,POINT OF CARE 167 MG/DL (70-110)
[2023-11-19 21:11] LABS: GLUCOMETER DEV NAME(LOC) ICUN.5; GLUCOSE,POINT OF CARE 270 MG/DL (70-110)
[2023-11-20] VITALS (17 sets, daily range): BP systolic 115–147; BP diastolic 43–69; PULSE 63–76; RESP 15–20; TEMP 97.8–98.8
[2023-11-20 00:11] LABS: GLUCOMETER DEV NAME(LOC) 5N.1C; GLUCOSE,POINT OF CARE 324 MG/DL (70-110)
[2023-11-20] MEDS: LEVOTHYROXINE SODIUM 50 MCG TABLET PO SCH (06:51)
[2023-11-20] MEDS: INSULIN LISPRO 100 UNITS/ML SQ PRN ×5 (06:59→23:35)
[2023-11-20] MEDS: PANTOPRAZOLE SODIUM 40 MG/VIAL IVP SCH (08:40)
[2023-11-20] MEDS: DOCUSATE SODIUM 100 MG CAPSULE PO SCH ×2 (08:41→20:56)
[2023-11-20] MEDS: LevETIRAcetam 500 MG TABLET PO SCH ×2 (08:41→20:57)
[2023-11-20] MEDS: CINACALCET HCL 30 MG TABLET PO SCH (08:41)
[2023-11-20] MEDS: AmLODIPine BESYLATE 5 MG TABLET PO SCH ×2 (08:41→20:57)
[2023-11-20] MEDS: CARVEDILOL 6.25 MG TABLET PO SCH ×2 (08:41→20:57)
[2023-11-20] MEDS: ASPIRIN 81 MG CHEWABLE TABLET PO SCH (08:42)
[2023-11-20] MEDS: ATORVASTATIN CALCIUM 40 MG TABLET PO SCH (08:42)
[2023-11-20] MEDS: CLOPIDOGREL BISULFATE 75 MG TABLET PO SCH (08:42)
[2023-11-20] MEDS: FERROUS SULFATE 325 MG EC TABLET PO SCH ×2 (08:42→20:56)
[2023-11-20] MEDS: SEVELAMER CARBONATE 800 MG TABLET PO SCH ×3 (08:42→20:56)
[2023-11-20] MEDS: FOLIC ACID 1 MG TABLET PO SCH (08:42)
[2023-11-20 09:21] LABS: GLUCOMETER DEV NAME(LOC) 5S.2C; GLUCOSE,POINT OF CARE > 600 MG/DL (70-110)
[2023-11-20 09:21] LABS: GLUCOMETER DEV NAME(LOC) 5S.2C; GLUCOSE,POINT OF CARE 582 MG/DL (70-110)
[2023-11-20 11:56] LABS: GLUCOMETER DEV NAME(LOC) 5N.1C; GLUCOSE,POINT OF CARE 444 MG/DL (70-110)
[2023-11-20 11:56] LABS: GLUCOMETER DEV NAME(LOC) 5N.1C; GLUCOSE,POINT OF CARE > 600 MG/DL (70-110)
[2023-11-20 11:56] LABS: GLUCOMETER DEV NAME(LOC) 5N.1C; GLUCOSE,POINT OF CARE 364 MG/DL (70-110)
[2023-11-20 12:31] LABS: GLUCOMETER DEV NAME(LOC) 5S.2C; GLUCOSE,POINT OF CARE 244 MG/DL (70-110)
[2023-11-20 16:05] LABS: BASOPHILS % (AUTO) 0.9 % (0.0-2.0); EOSINOPHILS % (AUTO) 1.8 % (1.0-6.0); HEMATOCRIT 29.2 % (36-46); LYMPHOCYTES # (AUTO) 0.8 K/uL (1.0-4.8); MEAN CORPUSCULAR HEMOGLOBIN 33.5 pg (26.0-34.0); MEAN CORPUSCULAR HGB CONC 34.3 G/dL (31.0-37.0); MEAN CORPUSCULAR VOLUME 98 fL (80-100); MONOCYTES # (AUTO) 0.5 K/uL (0.1-1.0); MONOCYTES % (AUTO) 9.3 % (2.0-9.0); NEUTROPHILS # (AUTO) 4.2 K/uL (1.8-7.7); PLATELET COUNT (AUTO) 193 K/uL (150-450); RED BLOOD CELL COUNT(AUTO) 2.99 MIL/uL (4.00-5.20); RED CELL DISTRIBUTION WIDTH 14.9 % (11.5-14.5); WHITE BLOOD COUNT (AUTO) 5.7 K/uL (4.5-11.0)
[2023-11-20 16:43] LABS: CALCIUM, TOTAL 8.1 mg/dL (8.8-10.5); CREATININE 5.39 mg/dL (0.60-1.30); POTASSIUM 4.8 mmol/L (3.5-5.1)
[2023-11-20 23:46] LABS: GLUCOMETER DEV NAME(LOC) 5S.2C; GLUCOSE,POINT OF CARE 307 MG/DL (70-110)
[2023-11-20 23:46] LABS: GLUCOMETER DEV NAME(LOC) 5S.2C; GLUCOSE,POINT OF CARE 111 MG/DL (70-110)
[2023-11-20 23:46] LABS: GLUCOMETER DEV NAME(LOC) 5S.2C; GLUCOSE,POINT OF CARE 345 MG/DL (70-110)
[2023-11-21 03:36] VITALS: BP 145/56; PULSE 66; RESP 18; TEMP 98.2
[2023-11-21] MEDS: INSULIN LISPRO 100 UNITS/ML SQ PRN ×3 (04:04→11:53)
[2023-11-21] MEDS: LEVOTHYROXINE SODIUM 50 MCG TABLET PO SCH (06:19)
[2023-11-21 06:46] LABS: GLUCOMETER DEV NAME(LOC) 5S.2C; GLUCOSE,POINT OF CARE 174 MG/DL (70-110)
[2023-11-21 08:01] VITALS: BP 160/74; PULSE 68; RESP 18; TEMP 98
[2023-11-21] MEDS: CARVEDILOL 6.25 MG TABLET PO SCH (08:15)
[2023-11-21] MEDS: LevETIRAcetam 500 MG TABLET PO SCH (08:15)
[2023-11-21] MEDS: PANTOPRAZOLE SODIUM 40 MG/VIAL IVP SCH (08:15)
[2023-11-21] MEDS: CINACALCET HCL 30 MG TABLET PO SCH (08:15)
[2023-11-21] MEDS: ATORVASTATIN CALCIUM 40 MG TABLET PO SCH (08:15)
[2023-11-21] MEDS: DOCUSATE SODIUM 100 MG CAPSULE PO SCH (08:16)
[2023-11-21] MEDS: SEVELAMER CARBONATE 800 MG TABLET PO SCH ×2 (08:16→11:58)
[2023-11-21] MEDS: CLOPIDOGREL BISULFATE 75 MG TABLET PO SCH (08:16)
[2023-11-21] MEDS: AmLODIPine BESYLATE 5 MG TABLET PO SCH (08:16)
[2023-11-21] MEDS: FOLIC ACID 1 MG TABLET PO SCH (08:16)
[2023-11-21] MEDS: FERROUS SULFATE 325 MG EC TABLET PO SCH (08:16)
[2023-11-21] MEDS: ASPIRIN 81 MG CHEWABLE TABLET PO SCH (08:16)
[2023-11-21] MEDS ORDERED: LinaGLIPtin 5 MG TABLET PO SCH (09:00)
[2023-11-21 11:18] VITALS: BP 119/53; PULSE 67; RESP 18; TEMP 98.2
[2023-11-21] MEDS ORDERED: LINA5TAB PO (13:35)
[2023-11-21 16:56] LABS: GLUCOMETER DEV NAME(LOC) 5N.1C; GLUCOSE,POINT OF CARE 338 MG/DL (70-110)
[2023-11-21 16:56] LABS: GLUCOMETER DEV NAME(LOC) 5N.1C; GLUCOSE,POINT OF CARE 167 MG/DL (70-110)
[2023-11-24] MEDS ORDERED: EPOETIN ALFA 10,000 UNITS/ML 2 ML VIAL SQ SCH (09:00)
== END 2023-11-21 14:25 | disposition home or self-care (01) | DRG 637 ==
LOC: EMS 03:41 → ICU 06:49 → 5N 20:45
PROVIDERS: ADMIT Internal Medicine; ATTEND Internal Medicine
PROC: 5A1D70Z Performance of Urinary Filtration, Intermittent, Less than 6 Hours Per Day (ICD-10-PCS; principal; 2023-11-19)
PROC: 5A1D70Z Performance of Urinary Filtration, Intermittent, Less than 6 Hours Per Day (ICD-10-PCS; 2023-11-20)
DX: E11.65 Type 2 diabetes mellitus with hyperglycemia (principal); N18.6 End stage renal disease; E87.5 Hyperkalemia; D63.8 Anemia in other chronic diseases classified elsewhere; E11.22 Type 2 diabetes mellitus with diabetic chronic kidney disease; E11.649 Type 2 diabetes mellitus with hypoglycemia without coma; I10 Essential (primary) hypertension; I25.10 Atherosclerotic heart disease of native coronary artery without angina pectoris; Z20.822 Contact with and (suspected) exposure to COVID-19; Z99.2 Dependence on renal dialysis; Z82.49 Family history of ischemic heart disease and other diseases of the circulatory system; Z83.3 Family history of diabetes mellitus; Z79.82 Long term (current) use of aspirin; Z79.899 Other long term (current) drug therapy; Z79.02 Long term (current) use of antithrombotics/antiplatelets; Z95.5 Presence of coronary angioplasty implant and graft
CPT/HCPCS: 71045; 80048; 80053; 82948; 82962; 83605; 83880; 84145; 84484; 85025; 85610; 85730; 86709; 87040; 87081; 87340; 87804; 90935; 93005; 99291; C9113; J1815; J3490; J7030; Q9967; 36415-L1; 36415-TC